=== PATIENT | male | born 1940 | race Caucasian/White ===

== ENCOUNTER 2024-01-15 04:45 | Inpatient (IN) | payer MEDICARE, OTHER, SELFPAY ==
[2024-01-06 12:12] VITALS: BMI 27.9
[2024-01-06 12:32] LABS: % Basophils 0.5 % (0-2); % Eosinophils 2.4 % (0-6); % Immature Granulocytes 0.3 % (0-0.5); % Lymphocytes 26.3 % (20.5-51.1); % Monocytes 9.1 % (1.7-9.3); % Neutrophils 61.4 % (42.2-75.2); Absolute Basophils 0.1 10^3/uL (0-0.2); Absolute Eosinophils 0.3 10^3/uL (0-0.7); Absolute Lymphocytes 2.9 10^3/uL (1.2-3.4); Absolute Neutrophils 6.7 10^3/uL (1.4-6.5); Hematocrit 29.6 % (39.0-52.0); Hemoglobin 9.4 g/dL (13.0-18.0); Mean Corp Hgb Conc. 31.8 g/dL (33.0-37.0); Mean Corpuscular Hgb 27.5 pg (27.0-31.0); Mean Corpuscular Volume 86.5 fL (80.0-94.0); Mean Platelet Volume 10.3 fL (7.4-10.4); Nucleated Red Blood Cells % 0 % (-); Platelet Count 373 10^3/uL (130-400); Red Blood Cell Count 3.42 10^6/uL (4.70-6.10); Red Cell Dist. Width 15.8 % (11.5-14.5); White Blood Cell Count 10.9 10^3/uL (4.8-10.8)
[2024-01-06 12:47] LABS: Urine Albumin Negative (Neg - Trace); Urine Bilirubin Negative (Negative); Urine Character Clear (Clear); Urine Color Yellow; Urine Glucose 3+ (Negative); Urine Ketone Negative (Negative); Urine Leukocyte Negative (Negative); Urine Nitrite Negative (Negative); Urine Occult Blood Negative (Negative); Urine Urobilinogen Negative (Neg - 1+)
[2024-01-06 12:54] LABS: ALT (SGPT) 13 U/L (0-50); AST (SGOT) 23 U/L (17-59); Albumin 3.9 g/dl (3.5-5.0); Alkaline Phosphatase 87 U/L (38-126); Blood Urea Nitrogen 28 mg/dl (9-20); Carbon Dioxide 24 mmol/L (22-30); Chloride 103 mmol/L (98-107); Direct Bilirubin 0.3 mg/dl (0.0-0.4); Estimated Creatinine Clearance 43 ml/min; Glucose 180 mg/dl (70-99); Potassium 4.8 mmol/L (3.5-5.1); Sodium 136 mmol/L (135-145); Total Bilirubin 0.3 mg/dl (0.2-1.3); Total Protein 7.2 g/dl (6.3-8.2); eGFR 50.18
[2024-01-06 12:57] LABS: INR 1.14; PT 14.5 Sec (11.4-14.6)
[2024-01-06 12:58] LABS: APTT 36.7 Sec (23.4-35.0)
[2024-01-06 14:17] LABS: Glycohemoglobin (HgbA1c) 9.4 % (4.0-5.6)
--- NOTE | 2024-01-06 15:48 | CM ---
Chart reviewed. Met with the patient and his in [facility]. Patient is independent of ADLS, lives with his in a 2 STH, 1 [address], powder room on 1st floor with 13 steps to the bedroom/shower, ambulates with a SPC. Patient was concerned about being
able to do the stairs after surgery, since he already has trouble going up and down the stairs. Patient has gone to SNF in the past and is agreeable to go if needed after surgery. Patient would prefer [facility] if qualifies for Acute or [facility] for SNF. Reviewed preoperative and postoperative instructions and restrictions, along with showering guidelines. Gave patient 2 soaps. Patient is agreeable to a home visit by CT Transitional Care RN. Plan is for the patient to return
home with CT Transitional RN vs SNF.
[2024-01-15] VITALS (10 sets, daily range): BP systolic 100–134; BP diastolic 58–75; BMI 29.7
[2024-01-15] MEDS: MAGNESIUM OXIDE 500 MG PO (05:48)
[2024-01-15] MEDS: PROTONIX 40 MG PO (05:48)
[2024-01-15] MEDS: BACTROBAN 2% OINTMENT 1 APPLIC NASAL ×2 (05:48→18:35)
[2024-01-15] MEDS: LOPRESSOR 25 MG PO (05:49)
--- NOTE | 2024-01-15 06:00 | PTCARENOTE ---
Pt arrived to CVICU for SDA; Pt was prepped and clipped; CHG wipes provided; pt provided new gown; all admission questions were asked; medications reviewed-Pt was poor historian for his home medication regime; some medications listed in [facility] are
marked Unknown per pt. Pre-op check list reviewed; CVPA took updated H/P; at bedside; awaiting CVOR.
--- NOTE | 2024-01-15 06:03 | W.CVOR.SURPR ---
CVOR Surgeon Immed Pre Op
-
I have examined this patient prior to performance of the scheduled procedure.
The patient's condition is unchanged from the time of the dictated/written History and
Physical and the patient is able to undergo the scheduled procedure.
RA MIDCAB (LÓPEZ-LAD)
[2024-01-15 07:47] LABS: ACT+ - POC 93 Seconds (82-134)
[2024-01-15 07:48] LABS: Urine Albumin Trace (Neg - Trace); Urine Bilirubin Negative (Negative); Urine Character Clear (Clear); Urine Color Yellow; Urine Glucose 1+ (Negative); Urine Ketone Negative (Negative); Urine Leukocyte Negative (Negative); Urine Nitrite Negative (Negative); Urine Occult Blood 1+ (Negative); Urine Urobilinogen Negative (Neg - 1+)
[2024-01-15 07:52] LABS: B.E. - POC -5.4 mmol/L; Glucose - POC 108 mg/dl (65-99); HCO3 - POC 20 mmol/L (21-29); Hematocrit - POC 28 % PCV (42-52); Hemodilution- POC Yes; Hemoglobin Calculated - POC 9.5; Ionized Calcium - POC 1.17 mmol/L (1.12-1.27); PCO2 - POC 38 mmHg (35-45); PO2 - POC 405 mmHg (80-100); Potassium - POC 4.2 mmol/L (3.6-5.0); Sodium - POC 138 mmol/L (135-145); pH - POC 7.33 (7.35-7.45)
[2024-01-15 08:54] LABS: B.E. - POC -7.1 mmol/L; Glucose - POC 114 mg/dl (65-99); HCO3 - POC 20 mmol/L (21-29); Hematocrit - POC 26 % PCV (42-52); Hemodilution- POC Yes; Hemoglobin Calculated - POC 8.9; Ionized Calcium - POC 1.18 mmol/L (1.12-1.27); O2 Saturation %Calculated-POC 91.7 5 (92-96); PCO2 - POC 43 mmHg (35-45); PO2 - POC 72 mmHg (80-100); Potassium - POC 4.2 mmol/L (3.6-5.0); Sodium - POC 137 mmol/L (135-145); pH - POC 7.26 (7.35-7.45)
[2024-01-15 10:33] LABS: ACT+ - POC 442 Seconds (82-134)
[2024-01-15 10:33] LABS: B.E. - POC -4.1 mmol/L; Glucose - POC 161 mg/dl (65-99); HCO3 - POC 22 mmol/L (21-29); Hematocrit - POC 27 % PCV (42-52); Hemodilution- POC Yes; Hemoglobin Calculated - POC 9.1; Ionized Calcium - POC 1.09 mmol/L (1.12-1.27); PCO2 - POC 46 mmHg (35-45); PO2 - POC 68 mmHg (80-100); Potassium - POC 4.7 mmol/L (3.6-5.0); Sodium - POC 139 mmol/L (135-145); pH - POC 7.29 (7.35-7.45)
--- NOTE | 2024-01-15 10:40 | CM ---
Patient in OR today for planned CT Surgery.
Reviewed initial assessment. Pt. admitted from private home w/ spouse. Functionally, patient is indep. w/ use of a SPC. Pt. has some concerns about DC to home and would prefer rehab. Would prefer [place] [facility] or SNF @ [facility].
Will follow closely.
[2024-01-15 11:54] LABS: ACT+ - POC 107 Seconds (82-134)
[2024-01-15 11:58] LABS: B.E. - POC -7.4 mmol/L; Glucose - POC 178 mg/dl (65-99); HCO3 - POC 20 mmol/L (21-29); Hematocrit - POC 27 % PCV (42-52); Hemodilution- POC Yes; Hemoglobin Calculated - POC 9.1; O2 Saturation %Calculated-POC 99.1 5 (92-96); PCO2 - POC 50 mmHg (35-45); PO2 - POC 164 mmHg (80-100); Potassium - POC 4.3 mmol/L (3.6-5.0); Sodium - POC 139 mmol/L (135-145); pH - POC 7.22 (7.35-7.45)
--- NOTE | 2024-01-15 12:08 | W.PN.CD ---
Addendum entered and electronically signed by William Montelongo MD 01/15/24 14:48:
I saw and examined the patient.
The STRAP FOLDING MACHINE OPERATOR's note was reviewed and I agree with the note.
Comment: He is doing well, heart rate is slow but sinus with a narrow complex. Hopefully will increase with temperature.
Continue typical post op care, will follow.
Original Note:
Today's Communication / Plan
-
Follow telemetry
Impression / Plan
-
Background: 83M with CAD, HTN, HLD, CKD, PAD, DMII, and toe amputationd presents for robotic mid-CAB
Primary Otm Consultant: Dr. Cydney Red ([facility])
Impression/Plan:
CAD S/P Robotic assisted MIDCAB (single-vessel bypass LÓPEZ in situ to LAD) by Dr. Serra 01/15/24
-EF 60% pre and post
-Not requiring vasopressor support
-EKG stable
-Prior PCI with stenting to RCA & Ramus
Bradycardia
-No pauses, follow telemetry, pre OR HR 83
-No wires
CKD3b
Mild AI
Type II DM, Hgba1c 9.4%
HTN
HLD, goal LD < 70, ideally < 55
PAD
Physical Exam
Vital Signs/Labs
Vital Signs
Temp Pulse BP Pulse Ox
98.2 F 83 134/65 98
01/15/24 05:22 01/15/24 05:22 01/15/24 05:22 01/15/24 05:22
01/14/24 01/15/24 01/16/24
06:59 06:59 06:59
Actual Weight 88.5 kg
PT 14.5 Sec (11.4-14.6) 01/06/24 12:01
INR 1.14 01/06/24 12:01
APTT 36.7 Sec (23.4-35.0) H 01/06/24 12:01
Physical Exam
Constitutional: No acute distress and Comfortable
EENT: Anicteric and Moist mucous membranes
Cardiovascular: Rhythm & rate is regular (bradycardia), Pedal edema is absent and Murmur/rub/gallop absent
Respiratory: Lungs clear to auscul. and Other (ETT to mechanical ventilation)
GI: Soft, Distention absent, Flat, Non tender and Normal bowel sounds
Neuro/Psych: Other (sedated)
Other: Skin (warm and dry; amputations noted)
Data Reviewed
-
Date of Service: January 15, 2024
EKG: Report Reviewed by me
Labs: Labs Reviewed by me
--- NOTE | 2024-01-15 12:10 | W.PN.CT.SURG ---
CT Surgery Operative Note
-
CARDIAC SURGERY OPERATIVE REPORT
Preoperative Diagnosis: Coronary Artery Disease with proximal LAD involvement and status post stenting for multivessel disease
Postoperative Diagnosis: Same
Procedure(s) Performed:
1. Robotic assisted MIDCAB (single-vessel bypass LÓPEZ in situ to LAD)
2. Robotic assisted harvest of internal mammary artery with anterolateral mini thoracotomy for CABG
3. Transesophageal echocardiography
4. Transonic Flowprobe assessment of LÓPEZ graft
Date of Surgery: 01/15/2024
Comorbidities:
1. Coronary artery disease involving the proximal LAD
2. Multivessel CAD status post stenting to the RCA and circumflex
3. Hypertension
4. Diabetes mellitus, type II
5. Hyperlipidemia
6. CKD
7. PAD
8. Crohn's disease
9. Mild AI
Attending Surgeon: Dav Serra MD, MS
Assistants: Karin Reyna PA-C (present and necessary to diploma medical assistant, exchanging robotic instruments, retraction, suction, exposure, suture management, and wound closure under my direction)
Anesthesiology: River Orozco MD and Mohan Alvarez CRNA
Scrub and Circulating RNs: Ananda Bradley, RN, Kaci Mccain, GELY
Business Strategy Manager: Leighton Montiel CCP
Anesthesia: GETA
EBL: 200cc
Products: None
Indication(s) for Procedures: This is an 83-year-old male with known CAD who underwent recent PCI and stenting of the RCA and ramus/circumflex lesion was found to have a long segment calcification of the proximal to mid LAD approximately 80% that
was not amenable to stenting. Following his PCI, he felt significantly better and is no longer having exertional angina. The STS risk was discussed with the patient in the office and the shared decision making was to pursue a single-vessel bypass
using his mammary artery to his LAD via a mini invasive approach.
Conduit(s) Quality/Internal Diameter:
LÓPEZ -dense adhesions to the anterior chest wall, however good size graft with excellent flow in the [place] vessel, flow probe analysis, mean approximately 20 cc/min (max of 45ml/min), PI of approximately 3
Target(s) Quality/Internal Diameter:
LAD -good, accepted a 2.0 mm shunt easily
Findings: There were no regional wall motion abnormalities preoperatively. EF is approximately 60% pre and postsurgery. There were no new regional wall motion abnormalities postoperatively. The LÓPEZ was harvested in a skeletonized fashion, of note
there was dense adhesions of the ÓLPEZ graft to the anterior chest wall making it somewhat difficult to harvest. The LAD was verified to be running towards the apex with several diagonal vessels coming off of the main graft. The mammary graft was
verified with Doppler flowprobe to have excellent signals. A posterior pericardiotomy was created and the drain was inserted from the pericardium into the chest through this opening.
Description of Procedure: The patient was taken to the operating room. Their identity and procedure to be performed were verified and they were positioned supine on the operating table. Induction via general anesthesia with endotracheal intubation
was performed and central venous access and arterial monitoring were inserted. A preoperative transesophageal echocardiogram was performed to assess cardiac function and valvular function. The patient was then prepped and draped from chin to feet in
a sterile fashion and positioned with left side bumped up and left arm down. A preoperative time-out was performed with all members of the team present. A Veress needle was used to enter the chest after stopping ventilation with the left lung
verified by anesthesia. We started with slow pressure insufflation which they tolerated. An 8 mm port was inserted in the fourth intercostal space laterally and a camera was inserted verifying no intrathoracic iatrogenic injuries. 2 additional
ports(8 mm and 8mm) were placed along the midaxillary line on either side of the camera port. Single 12 mm air seal port was used for the assistant to the dean to pass instruments and sutures. The robotic platform was then docked and targeted towards the
mammary. The mammary was harvested in a skeletonized fashion. A posterior pericardiotomy was created to facilitate drainage. Once sufficient length was obtained, an anterior pericardiotomy was created to identify the distal target. This was marked
with a marker robotically. The cardiac stabilizer arm was then inserted through one of the robotic ports under direct vision and aimed up towards the anterior chest wall. Full heparinization was given (a total of 30,000 units). 3 Hem-o-medardo clips
were used to occlude the mammary proximally and distally. The cardiac stabilizer was inserted under direct vision.. The robot platform was then undocked and the patient and a left anterior thoracotomy was created over the target vessel. The
mammary then divided after placing several stay sutures. A thoracotomy retractor was placed to facilitate exposure and a pericardial well was created. A sponge stick was used to mobilize the heart visualized the LAD running towards the apex. The
ACT was confirmed to be over 400.
The cardiac suction stabilizer was used to isolate the LAD target. The distal end of the mammary was prepped and beveled to size. We verified orientation and length of the MILA and found brisk flow. A coronary arteriotomy was created and enlarged
with coronary berry scissors. A 2mm shunt was inserted to facilitate exposure and continued che[place] coronary perfusion. An end-to-side anastomosis was created with a 7-0 prolene. The bulldog on the mammary was removed which demonstrated excellent
graft flow. The shunt was then remove and demonstrated excellent che[place]nak flow. Appropriate hemostasis was confirmed. The mammary graft was inspected and was free from kinking or twisting and flowprobe evaluation demonstrated good flow and PI. A test
dose of protamine was administered and the patient was monitored for any adverse reaction before resuming protamine. A 19F mel drain into the pericardium and through the posterior pericardiotomy into the left chest. A #2 Ethibond suture was used
to approximate the rib space. Fascia was approximated with #1 vicryl suture. Local analgesia was administered to the surgical sites. The subcutaneous, dermis and epidermis were closed in layers in a running fashion. The skin wound was cleansed and
dressed.
All instrument, sponge, and needle counts were confirmed to be correct x 2 at the end of the operation. The patient was transferred to the cardiac intensive care unit intubated in critical but stable condition.
I, Dr. Dav Serra, was present, scrubbed for, and performed all critical elements of this procedure.
Dav Serra MD, MS
Cardiothoracic Surgeon
[facility]
This operative dictation was created using the [employer] dictation system. Please excuse any grammatical, typographical, or 'sound alike' errors
[2024-01-15] MEDS: STERILE WATER FOR INJECTION 16 ML IV ×2 (12:30)
[2024-01-15] MEDS: NSS 500 IV (12:30)
[2024-01-15] MEDS: ZINACEF 1500 MG IV ×2 (12:30)
--- NOTE | 2024-01-15 12:30 | PTCARENOTE ---
Phone report from cvor at 1150am and patient receved status post cvor intubated and sedated status post MIDCAB robotically assisted off pump left anterolateral thoracotomy aproach CAB x 1 swanson to lad. Usual lines: no swan gustavo and no epicardial v
wire. Left anterior pericardial med chest tube to -20 cm wall suction: no 'dumping'post op. ABG initially metabolic acidosis and tx with 2 amps NAHCO3- and hypothermic with core temps 93.6 F via mcdaniel temp . Adalberto hugger to high. Sinus beatrice rates in
the 40's to 50's with PAC's/PVC. See flowrecord for remaining assessments. CT surgery updated with all labs and hemodynamics. Titrating down precedex per cvicu protocol
[2024-01-15 12:42] LABS: Glucose - Point of Care 204 mg/dl (70-99)
[2024-01-15 12:43] LABS: B.E. -6.9 mmol/L; HCO3 20.1 mmol/L (21-28); Ionized Calcium 1.24 mMOL/L (1.15-1.33); O2 Saturation % 98.5 % (94-98); PCO2 47 mmHg (35-48); PO2 146 mmHg (83-108); Potassium 4.4 mMOL/L (3.5-5.1); Sodium 136 mMOL/L (136-145); pH 7.24 (7.35-7.45)
[2024-01-15 12:45] LABS: Hematocrit 26.4 % (39.0-52.0); Hemoglobin 8.4 g/dL (13.0-18.0); Platelet Count 340 10^3/uL (130-400)
[2024-01-15 12:54] LABS: INR 1.49; PT 18.1 Sec (11.4-14.6)
[2024-01-15 13:01] LABS: Blood Urea Nitrogen 23 mg/dl (9-20); Estimated Creatinine Clearance 50 ml/min; Glucose 187 mg/dl (70-99)
[2024-01-15] MEDS: SODIUM BICARBONATE 100 MEQ IV (13:06)
--- NOTE | 2024-01-15 13:33 | CON.INTV ---
Consultation
Consultation Request
Date/Time Consultation Requested: 01/15/24
Date/Time Consultation Performed: 01/15/24
Performing Provider: Nohelia
Medical History
-
History of Present Illness:
Patient is an 83-year-old male with previous history of CAD status post PCI, known history of 80% stenosis of the LAD with chronic shortness of breath. Underwent surgical coronary revascularization 01/15/2024 and postoperatively transferred to CVICU
for further management.
No prior known history of lung disease, noted to be a never smoker.
Past Medical History
Past Medical History: Other (see list below)
Social History
Tobacco: Non-smoker
Alcohol: None
Drug: None
Family History
Family History: Reviewed & Not Pertinent
Allergies / Home Medications
Allergies
Allergy/AdvReac Type Severity Reaction Status Date / Time
No Known Allergies Allergy Verified 01/01/24 12:20
Home Medications
Medication Instructions Recorded Confirmed Last Taken Type
amlodipine 10 mg tablet 10 mg PO DAILY 01/01/24 01/15/24 01/14/24 12:00 History
aspirin 81 mg tablet,delayed 81 mg PO DAILY 01/01/24 01/15/24 01/14/24 12:00 History
release
clopidogrel 75 mg tablet 75 mg PO DAILY 01/01/24 01/15/24 01/04/24 08:00 History
fenofibrate nanocrystallized 145 145 mg PO DAILY 01/01/24 01/15/24 01/14/24 12:00 History
mg tablet
fluticasone propionate 50 1 spray intranasal DAILY 01/01/24 01/15/24 12/22/23 08:00 History
mcg/actuation nasal
spray,suspension
indapamide 1.25 mg tablet 1.25 mg PO DAILY 01/01/24 01/01/24 Unknown History
insulin aspart U-100 100 unit/mL 14 - 18 sliding scale dose SC 01/01/24 01/15/24 01/14/24 17:00 History
(3 mL) subcutaneous pen (Novolog DIRECTED
FlexPen U-100 Insulin aspart)
insulin glargine 100 unit/mL (3 20 unit SC BID 01/01/24 01/15/24 01/14/24 19:00 History
mL) subcutaneous pen (Lantus
Solostar U-100 Insulin)
mesalamine 1.2 gram tablet,delayed 4.8 g PO DAILY 01/01/24 01/15/24 01/14/24 12:00 History
release
metoprolol succinate 25 mg 25 mg PO DAILY 01/01/24 01/15/24 01/14/24 12:00 History
tablet,extended release 24 hr
rosuvastatin 20 mg tablet 20 mg PO DAILY 01/01/24 01/15/24 01/14/24 12:00 History
telmisartan 80 mg tablet 80 mg PO DAILY 01/01/24 01/15/24 Unknown History
trazodone 100 mg tablet 100 mg PO HS 01/01/24 01/15/24 01/13/24 19:00 History
vancomycin 125 mg capsule 125 mg PO DAILY 01/01/24 01/15/24 Unknown History
Review of Systems
-
Unable to Obtain full review of systems at this time due to: Acuity and Patient Intubation
Vitals / Labs / Diagnostic Testing
Vital Signs
Temp Pulse Resp BP Pulse Ox
93.7 F L 48 18 134/65 97
01/15/24 13:21 01/15/24 13:21 01/15/24 13:21 01/15/24 05:22 01/15/24 13:21
Lab Data
01/15/24 12:29
Laboratory Results
01/15/24
12:29
PT 18.1 H
INR 1.49
APTT 36.0 H
pH 7.24 L
pCO2 47
pO2 146 H
HCO3 20.1 L
O2 Delivery Level
Diagnostic Testing:
Physical Exam
-
HEENT: Normocephalic, Anicteric and Moist Mucous Membranes
Cardiovascular: S1/S2 and Regular Rhythm
Respiratory: Clear, Non-Labored Respirations and Other (ETT/chest tube)
GI: Soft, Non Distended and Non Tender
Neurology: Other (sedated/intubated)
Skin: Warm, Dry and Good Color
General: Comfortable and Other (NAD)
Assessment
-
Patient is an 83-year-old male with previous history of CAD status post PCI, known history of 80% stenosis of the LAD with chronic shortness of breath. Underwent surgical coronary revascularization 01/15/2024 and postoperatively transferred to CVICU
for further management.
CAD s/p CABG 01/15/24
Perioperative mechanical ventilation
Postop anemia
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
type II diabetes� �
hypercholesterolemia� �
insomnia� �
hypertension� �
CAD s/p Cardiac stents�
peripheral vascular disease� �
seasonal allergies� �
chronic kidney disease stage 3� �
Crohn's disease� �
heart murmur� �
multiple bilateral toe amputations
back surgery� �
H/o c-diff, pneumonia, HR hosp� � 11/26/2023� �
Plan
S/p CAB POD #0
Titrate off pressors per protocol
ECHO reviewed with normal function
PA catheter readings reviewed
Management of chest tubes per primary service
Intubated/sedated, initiate SAT when able
Pain control
RASS goal of 0 to -1
Intubated for procedure, SBT trial when patient able to spontaneously breath
Current vent settings: SIMV 550/18/60/5
ABG(s) reviewed--adequate
CXR with no obvious opacities/infiltrates, low lung volumes, ETT in good position, lines/tubes in place
Extubate per protocol
Maintain supplement oxygen as needed
No prior history of pulmonary disease, nonsmoker
No prior PFTs for review
Can add nebulizers if needed
Aspiration precautions
Encouraged incentive spirometry, OOB/ambulation/early mobility
Advance diet as tolerated following extubation
GI prophylaxis if indicated for mechanical ventilation >48 hours
Monitor critical I/O's
Tapia/chest tube output
Hb/platelets postoperatively stable
Trend CBC for now
Can transfuse if indicated for Hb <7, plt <50 in surgical patients
DVT prophylaxis including SCDs
We will follow
Diagnostic Data
Chest X-Ray: 01/15/24 -The patient is now status post cardiothoracic surgery. Endotracheal tube is 2 cm above the robert. There is a central line catheter on the right with the tip overlying the SVC.
There are low lung volumes with bibasilar atelectasis, bands of atelectasis in the mid lung zones right greater than left, and elevation of the right hemidiaphragm. Left base chest tube in place. Defibrillation pads on the chest Limited evaluation
for subtle abnormality.
CT Scan: CAP 01/06/24- Moderate anterior eventration of the right hemidiaphragm. Linear densities within the lungs, most likely representing scarring, although could also represent linear atelectasis.
Vascular calcification with no evidence for thoracic or aortic aneurysm. Mild hepatomegaly with fatty infiltration of the liver. Cholelithiasis. Evaluation of the pelvis is limited because of streak artifact from left hip prosthesis. Bony
degenerative changes as described. Calcific tendinosis of the right gluteus medius tendon insertion into the right proximal femur.
Echo: 01/15/24- Overall LVEF is approximately 60% with no RWMA.�Mild concentric left ventricular hypertrophy.�Stage I Diastolic dysfunction.�Aortic sclerosis without stenosis.�Trace AI.�Mild tricuspid regurgitation.�Estimated pulmonary artery systolic
pressure of 35-40 mmHg.�Trace pulmonic insufficiency.�Mild sessile atheroma seen in the descending aorta and distal arch.
PFT's:
Reports and relevant images were personally reviewed.
-----
Critical Care time 50 mins -- The patient is admitted for acute critical illness for the treatment of vital organ failure and/or prevention of further life-threatening conditions. Total care includes time spent in review of history, physical exam,
medications, hemodynamic/ventilator parameters, laboratory data, imaging and discussion with house staff, pharmacy, respiratory therapy, wafer substrate tester, and nursing.
--- NOTE | 2024-01-15 13:34 | W.PN.CARDCBS ---
Impression / Plan
-
Background: 83M with CAD, HTN, HLD, CKD, PAD, and toe amputation presents for robotic mid-CAB
Primary Gis Scientist: Dr. Cydney Red ([facility])
Impression/Plan:
CAD S/P Robotic assisted MIDCAB (single-vessel bypass LÓPEZ in situ to LAD) by Dr. Serra 01/15/24
-EF 60% pre and post
-EKG stable
-Prior PCI with stenting to RCA & Ramus
CKD3b
Mild AI
Type II DM, Hgba1c 9.4%
HTN
HLD, goal LD < 70, ideally < 55
PAD
Progress Note - Gis Scientist
Subjective
Date of Service: January 15, 2024
Objective
Labs:
01/15/24 12:29
Labs
Hgb 8.4 g/dL (13.0-18.0) L 01/15/24 12:29
Hct 26.4 % (39.0-52.0) L 01/15/24 12:
Plt Count 340 10^3/uL (130-400) 01/15/24 12:29
PT 18.1 Sec (11.4-14.6) H 01/15/24 12:
INR 1.49 01/15/24 12:
APTT 36.0 Sec (23.4-35.0) H 01/15/24 12:29
Sodium 136 mmol/L (135-145) 01/06/24 12:
Potassium 4.8 mmol/L (3.5-5.1) 01/06/24 12:
BUN 23 mg/dl (9-20) H 01/15/24 12:29
Creatinine 1.1 mg/dL (0.7-1.3) 01/15/24 12:
Glucose 187 mg/dl (70-99) H 01/15/24 12:29
Vital Signs and I&O:
Vital Signs
Temp Pulse Resp BP Pulse Ox
93.7 F L 48 18 134/65 97
01/15/24 13:21 01/15/24 13:21 01/15/24 13:21 01/15/24 05:22 01/15/24 13:21
Vital Signs
Temp Pulse Resp BP Pulse Ox
93.7 F L 48 18 134/65 97
01/15/24 13:21 01/15/24 13:21 01/15/24 13:21 01/15/24 05:22 01/15/24 13:21
Intake & Output
01/13/24 01/14/24 01/15/24 01/16/24
07:59 07:59 07:59 07:59
Intake Total 144.6 / 144.6
Output Total 75 / 75
Balance 69.6 / 69.6
[2024-01-15 13:46] LABS: Glucose - Point of Care 174 mg/dl (70-99)
[2024-01-15 13:58] LABS: B.E. -0.9 mmol/L; HCO3 23.4 mmol/L (21-28); O2 Saturation % 97.9 % (94-98); PCO2 36 mmHg (35-48); PO2 120 mmHg (83-108); pH 7.42 (7.35-7.45)
--- NOTE | 2024-01-15 14:08 | W.PN.UPDATE ---
Update Note
Progress Note Update
IV fluids: 500
U.O.:� 400
Blood:� none
Wires:� none
Inotropes:� none
Pressors:� Norepi @ 3
Sedatives:� Precedex @ 0.6
�
NEURO: sedated on Precedex, pupils +2mm B/L
RESP: #8OT @24cm> 550/100%/16/5. Lungs clear B/L. 2 mediastinal (10cc on arrival) and R/L pleural (20cc on arrival) chest tubes to -20cm suction. Sanguineous drainage
CV: RRR +S1, S2, no S3, no�rub, no murmur. Dermabond intact to left anterior mini thoracotomy. RIJ w/slick.
ABD: round, soft, no BS
EXT: no edema, +1/4 DP pulses B/L, no femoral bruit, R foot with metatarsals amputated; left foot w/1 digit amputated. ; left radial A-line intact
: Tapia with clear yellow urine
�
A/P: POD #0 s/p left mini thoracotomy OBCAB x 1 LÓPEZ-LAD
BRAYDEN: EF�60%, trace TR/PI, mild AI/MR
- wean and extubate
# CAD
- wean Norepi
- ASA within 6 hours post op
- begin statin and Plavix POD #1
�
# acute surgical blood loss anemia (expected) on chronic anemia
- pre-op Hb 9.4
- trend CBC
�
# T2DM (A1C 9.4)
- insulin infusion x 48h
- diabetes management consult
- resume glargine when off insulin infusion
- carb controlled diet
�
# CKD3 (pre-op creat 1.4)
- trend creatinine and UO
# PAD w/R foot metatarsal amputation
- PT/OT consult for ambulatory assessment
# Chron's disease
- resume mesalamine 4.8g daily on POD#1
# Insomnia
- resume Trazadone POD #1
[2024-01-15] MEDS: NOVOLOG FLEXPEN SC ×2 (14:38→17:57)
[2024-01-15] MEDS: CRESTOR PO (14:38)
[2024-01-15] MEDS: TYLENOL PO ×3 (14:39→16:40)
[2024-01-15] MEDS: PEPCID IV (14:39)
[2024-01-15 14:56] LABS: Glucose - Point of Care 159 mg/dl (70-99)
--- NOTE | 2024-01-15 15:49 | PTCARENOTE ---
Patient is awakening to voice/name and spontaneously. Following simple commands and moving all extremeties to RN direction. Will cpap shortly.
--- NOTE | 2024-01-15 16:00 | PTCARENOTE ---
Awakening spontaneously: following direction: nods head no to pain/nausea. Slightly restless: follows direction to calm down. CPAP vent wean initiated 5/5 FiO2 40%. Nitro on as per protocol for hypertension. No 'dumping'from med chest tube
[2024-01-15 16:09] LABS: Glucose - Point of Care 113 mg/dl (70-99)
[2024-01-15 16:38] LABS: B.E. -1.7 mmol/L; HCO3 22.9 mmol/L (21-28); O2 Saturation % 96.6 % (94-98); PCO2 37 mmHg (35-48); PO2 81 mmHg (83-108); Potassium 3.7 mMOL/L (3.5-5.1)
[2024-01-15] MEDS: PACERONE PO (16:40)
[2024-01-15 16:42] LABS: Hematocrit 24.7 % (39.0-52.0); Hemoglobin 8.3 g/dL (13.0-18.0); Platelet Count 321 10^3/uL (130-400)
--- NOTE | 2024-01-15 16:45 | PTCARENOTE ---
Extubated to 6 l nasal canula. Expectorated large amount of thick whitish clear mucous.
[2024-01-15] MEDS: KCL 50 IV ×2 (17:07→18:38)
[2024-01-15 17:16] LABS: Glucose - Point of Care 121 mg/dl (70-99)
--- NOTE | 2024-01-15 17:22 | RESPNOTE ---
Addendum entered by Juana Turk, RT 01/15/24 18:07:
16:45 time of extubation.
Original Note:
14:45 Paient extubated and placed on 6L nasal cannula 96%
[2024-01-15] MEDS: LOW STRENGTH ASPIRIN 81 MG PO (18:35)
[2024-01-15] MEDS: ZINACEF 750 MG IV (18:35)
[2024-01-15 19:32] LABS: Glucose - Point of Care 91 mg/dl (70-99)
[2024-01-15] MEDS: PEPCID 20 MG IV (20:14)
[2024-01-15] MEDS: NSS (PRESERVATIVE FREE) 8 ML IV (20:14)
[2024-01-15] MEDS: TYLENOL 650 MG PO (20:15)
[2024-01-15] MEDS: SENOKOT-S 1 TABLET PO (20:15)
[2024-01-15] MEDS: ROXICODONE 10 MG PO (20:42)
[2024-01-15] MEDS: LOPRESSOR 12.5 MG PO (21:23)
[2024-01-15] MEDS: PACERONE 200 MG PO (21:24)
[2024-01-15 21:28] LABS: Glucose - Point of Care 112 mg/dl (70-99)
[2024-01-15 23:29] LABS: Glucose - Point of Care 98 mg/dl (70-99)
[2024-01-16] VITALS (30 sets, daily range): BP systolic 105–161; BP diastolic 38–93; PULSE 89–121; O2SAT 97; BMI 30.9
[2024-01-16 01:39] LABS: Glucose - Point of Care 100 mg/dl (70-99)
[2024-01-16] MEDS: TYLENOL PO (02:50)
[2024-01-16] MEDS: ROXICODONE 10 MG PO (02:55)
[2024-01-16] MEDS: TYLENOL 650 MG PO ×5 (02:55→20:01)
[2024-01-16] MEDS: ZINACEF 750 MG IV ×2 (02:57→11:17)
[2024-01-16 03:29] LABS: Glucose - Point of Care 92 mg/dl (70-99)
[2024-01-16 04:06] LABS: Hematocrit 24.4 % (39.0-52.0); Hemoglobin 8.3 g/dL (13.0-18.0); Mean Corpuscular Hgb 27.9 pg (27.0-31.0); Mean Corpuscular Volume 82.2 fL (80.0-94.0); Mean Platelet Volume 10.3 fL (7.4-10.4); Platelet Count 347 10^3/uL (130-400); Red Blood Cell Count 2.97 10^6/uL (4.70-6.10); Red Cell Dist. Width 15.7 % (11.5-14.5); White Blood Cell Count 19.3 10^3/uL (4.8-10.8)
[2024-01-16 04:32] LABS: Blood Urea Nitrogen 27 mg/dl (9-20); Calcium 8.7 mg/dl (8.4-10.2); Carbon Dioxide 21 mmol/L (22-30); Chloride 107 mmol/L (98-107); Estimated Creatinine Clearance 46 ml/min; Glucose 83 mg/dl (70-99); Magnesium 2.1 mg/dl (1.6-2.3); Potassium 4.3 mmol/L (3.5-5.1); Sodium 139 mmol/L (135-145); eGFR > 60.00
--- NOTE | 2024-01-16 05:27 | W.PN.CT ---
Today's Communication / Plan
-
-pod #1
-hypertensive, tachycardic initially - improved with BB. C/o 'ache' at the back of the head/neck - resolved with getting out of bed. A&Ox4, neuro intact. Very hard of hearing (hearing aides are at home)
-Drips: insulin, Cardene 5 on and off
-CT output: med 55/125 in 12/24 hrs
-follow Cr - 1.2 today (1.4 preop)
-deline
-continue insulin
-continue Tapia for critical I/O (hx CKD)
-current meds (ASA, Crestor, Lopressor, Amio)
-encourage IS, OOB
Assessment / Plan
-
- CAD with prox LAD dz - s/p Robotic assisted MIDCAB (single-vessel bypass LÓPEZ in situ to LAD) on 01/15/[address] Serra, pod #1
-intraop BRAYDEN: EF is approximately 60% pre and postsurgery.� There were no new regional wall motion abnormalities pre or postoperatively.
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
- Hypertension
- Diabetes mellitus, type II (HgA1c 9.4)
- Hyperlipidemia
- CKD 3a (Cr 1.4 preop)
- PAD
- Crohn's disease
- Mild AI
- Acute on chronic blood loss anemia
- Acute postop metabolic acidosis - resolved
- Acute postop atelectasis
- Acute postop hypovolemia with subsequent hypervolemia
Discussed patient care with: Nursing and Care Team
Subjective
Procedure
- s/p Robotic assisted MIDCAB (single-vessel bypass LÓPEZ in situ to LAD) on 01/15/[address] Serra
-
Date of Service: January 16, 2024
Objective Data
-
PT 18.1 Sec (11.4-14.6) H 01/15/24 12:29
INR 1.49 01/15/24 12:29
APTT 36.0 Sec (23.4-35.0) H 01/15/24 12:29
Vital Signs
Vital Signs
Temp Pulse Resp BP Pulse Ox
99.7 F 88 15 117/64 95
01/15/24 22:06 01/15/24 22:00 01/15/24 22:00 01/15/24 22:00 01/15/24 22:06
CT Intake/Output/Weight
01/15/24 01/15/24 01/16/24
06:59 18:59 06:59
Intake Total 315.0 / 815.0 500 / 815.0
Output Total 315 / 690 375 / 690
Balance 0 / 125.0 125 / 125.0
SaO2: 95
Physical Exam
-
General: Awake and AOx3
Cardiovascular: Regular rate & rhythm and Murmur (1/6 systolic @lsb, no rub)
Respiratory: Decreased Breath Sounds
Sternum: Stable
Incision: Clean, Dry and Dressing Intact
Extremities: No Edema (R foot with all toes amputated, L foot amputated ?4th digit. warm b/l, DPs not palpable b/l)
Abdomen: distended, increased bowel sounds, nontender
Data Reviewed
-
Lab Results: Results Reviewed
Medications: Active Meds Reviewed
Chest X-Ray: Report Reviewed and Image Reviewed
ECG: Report Reviewed and Image Reviewed
[2024-01-16 05:49] LABS: Glucose - Point of Care 110 mg/dl (70-99)
--- NOTE | 2024-01-16 07:37 | PTCARENOTE ---
Patient received from nightshift nurse. Patient is alert and oriented x4, pleasant. Very hard of hearing - patient left his hearing aids at home so he wouldn't lose them. Denies pain/discomfort. NSR with ST elevations. Rub auscultated. HR 70s-80s. L
radial a-line maintained with BP 120s-130s/30s-40s. Correlating with LUE BP cuff 115/61. RIJ cordis maintained with KVO. Insulin gtt maintained per critical care glycemic protocol. PIV maintained. 2L NC maintained. Oxygen saturation 99%. Upon
auscultation, lung sounds diminished throughout. MS CT maintained to -20cm wall suction with minimal serosanguineous drainage. Abdomen round, obese. Hypoactive BS. Per patient, passing gas. Tapia maintained with adequate UOP. Assist x2 OOB into
chair. L anterior lateral chest incision is approximated with surgical adhesive and open to air. Patient had R foot toes amputated. L foot only has one toe amputated. Will continue to monitor.
[2024-01-16 08:21] LABS: Glucose - Point of Care 102 mg/dl (70-99)
--- NOTE | 2024-01-16 08:42 | W.PN.CD ---
Today's Communication / Plan
-
continue ASA, plavix, statin
EKG
tele
Impression / Plan
-
Background: 83M with CAD, HTN, HLD, CKD, PAD, DMII, and toe amputationd presents for robotic mid-CAB
Primary Termite Control Servicer: Dr. Cydney Red ([facility])
Impression/Plan:
CAD S/P Robotic assisted MIDCAB (single-vessel bypass LÓPEZ in situ to LAD) by Dr. Serra 01/15/24
-Prior PCI with stenting to RCA & Ramus
-EF 60% pre and post
-EKG and tele: sinus
-ASA, plavix, statin
ST elevation on EKG, rub on exam
-but no complaints of chest pain/pericarditis sxs
-monitor clinically, and trend EKG
Bradycardia
-No pauses, follow telemetry, pre OR HR 83
-No wires
CKD3b
Mild AI
Type II DM, Hgba1c 9.4%
HTN
HLD, goal LD < 70, ideally < 55
PAD
Physical Exam
Vital Signs/Labs
Vital Signs
Temp Pulse Resp BP Pulse Ox
100.5 F H 77 13 115/61 94
01/16/24 08:00 01/16/24 08:00 01/16/24 08:00 01/16/24 08:00 01/16/24 07:00
01/15/24 01/16/24 01/17/24
06:59 06:59 06:59
Actual Weight 88.5 kg 92.2 kg
01/16/24 03:23
01/16/24 03:23
PT 18.1 Sec (11.4-14.6) H 01/15/24 12:29
INR 1.49 01/15/24 12:29
APTT 36.0 Sec (23.4-35.0) H 01/15/24 12:29
Magnesium 2.1 mg/dl (1.6-2.3) 01/16/24 03:23
Physical Exam
Constitutional: No acute distress and Comfortable
EENT: Moist mucous membranes
Cardiovascular: Rhythm & rate is regular, Pedal edema is absent, JVD pressure is normal, Systolic murmur absent and Rub present
Respiratory: Respiratory effort normal and Lungs clear to auscul.
GI: Soft, Distention absent and Flat
Neuro/Psych: AO x 3
Data Reviewed
-
Date of Service: January 16, 2024
EKG: Other (Tele: NSR)
Labs: Labs Reviewed by me
[2024-01-16 09:13] LABS: Glucose - Point of Care 242 mg/dl (70-99)
[2024-01-16] MEDS: BACTROBAN 2% OINTMENT 1 APPLIC NASAL ×2 (09:34→19:59)
[2024-01-16] MEDS: CRESTOR 20 MG PO (09:35)
[2024-01-16] MEDS: PROTONIX 40 MG PO (09:35)
[2024-01-16] MEDS: PLAVIX 75 MG PO (09:35)
[2024-01-16] MEDS: MAGNESIUM OXIDE 500 MG PO (09:35)
[2024-01-16] MEDS: NOVOLOG FLEXPEN SC (09:35)
[2024-01-16] MEDS: LOW STRENGTH ASPIRIN 81 MG PO (09:35)
[2024-01-16] MEDS: KCL 20 MEQ PO (09:36)
[2024-01-16] MEDS: SENOKOT-S 1 TABLET PO (09:36)
[2024-01-16] MEDS: LASIX 40 MG IV (09:36)
[2024-01-16] MEDS: PACERONE 200 MG PO ×3 (09:36→22:09)
[2024-01-16 10:32] LABS: Glucose - Point of Care 227 mg/dl (70-99)
[2024-01-16] MEDS: LOPRESSOR 12.5 MG PO (10:38)
--- NOTE | 2024-01-16 11:12 | W.PN.ANS.POP ---
Anesthesia Post Operative
- Anesthesia Post Op Note
Vital Signs Stable-See Nursing Note: Yes
Airway Patent: Yes
Adequate Pain Control: Yes
Change in Mental Status: No
Current Postoperative Nausea & Vomiting: No
Anesthesia Complications: No
General Anesthetic Recall: No
Unplanned Admission: No
Post Op Hydration Adequate: Yes
- -
Saw pt this AM at 0745..OOB to chair, comfortable, VSS, no N/V.
[2024-01-16] MEDS: NSS IV (11:17)
[2024-01-16] MEDS: STERILE WATER FOR INJECTION 8.30000000000000071 ML IV (11:17)
[2024-01-16 11:22] LABS: Glucose - Point of Care 188 mg/dl (70-99)
--- NOTE | 2024-01-16 11:26 | PN.DE.MGMTRT ---
Insulin Management
- -
01/16/2024 Diabetes Management Consult
Patient is POD 1 s/p OR for robotic assisted MIDCAB single vessel. PMH HCL, HTN, type 2 diabetes, CAD, PVD, CKD3, Crohns disease. Patient states he has had diabetes 30 years. Initially took metformin but had diarrhea and could not tolerate. He
was then started on insulin. He saw endocrine in [facility]. but it became difficult to get to the city so has worked with his primary doctor, Twan, to manage his diabetes.
Patient is awake, alert and oriented sitting out of bed for our consult. Prior to admission he states he was taking novolog 14 units with breakfast and dinner and 18 units with lunch. He also takes 18 units of lantus BID.
On admission his A1C is 9.4%, cr 1.2, eGFR >60.
He is currently on the critical care glycemic protocol requiring .6 to 2.3 units of insulin per hour.
Will continue on glycemic protocol today and evaluate for readiness to transition off in AM.
Patient does not eat any meals at home he visits a local diner for breakfast and dinner his lunch is usually a sandwich, dinner is usually pancakes or pashto toast with cottage cheese. Discussed with patient the importance of well balanced diet
with examples of better choices, he verbalized understanding and was most appreciative. He has a candy CGM which he uses. Will ask case management to investigate cost of farxiga or jardiance.
Diabetes History
- -
Type of Diabetes: 2 requiring insulin
Pre-Admission Diabetes Regimen
01/15/24 01/16/24
12 03:23
Creatinine 1.1 1.2
Lab Results
Hemoglobin A1c 9.4 % (4.0-5.6) H 01/06/24 12:01
Insulin Pump Settings
IP Diabetes Regimen
01/15/24 01/15/24 01/15/24
12: 12:31 13:40
Glucose 187 H
POC Glucose 204 H 174 H
01/15/24 01/15/24 01/15/24
14:54 16:05 17:14
Glucose
POC Glucose 159 H 113 H 121 H
01/15/24 01/15/24 01/15/24
19:32 21:26 23:27
Glucose
POC Glucose 91 112 H 98
01/16/24 01/16/24 01/16/24
01:38 03:23 03:27
Glucose 83
POC Glucose 100 H 92
01/16/24 01/16/24 01/16/24
05:47 08:19 09:12
Glucose
POC Glucose 110 H 102 H 242 H
01/16/24 01/16/24
10:31 11:20
Glucose
POC Glucose 227 H 188 H
Meal type: Breakfast
Meal type: Dinner
Amount consumed: 90%
Patient Education
--- NOTE | 2024-01-16 12:10 | W.PN.INTV ---
Today's Communication / Plan
Recommendations
Doing well post extubation, stable on room air
Chest tube remains, PAC discontinued
Continue further postop care
Transition off insulin gtt as able
Transfer to tele when off gtt, we will sign off upon transfer
Assessment
-
Patient is an 83-year-old male with previous history of CAD status post PCI, known history of 80% stenosis of the LAD with chronic shortness of breath. Underwent surgical coronary revascularization 01/15/2024 and postoperatively transferred to CVICU
for further management.
CAD s/p CABG 01/15/24
Perioperative mechanical ventilation
Postop anemia
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
type II diabetes� �
hypercholesterolemia� �
insomnia� �
hypertension� �
CAD s/p Cardiac stents�
peripheral vascular disease� �
seasonal allergies� �
chronic kidney disease stage 3� �
Crohn's disease� �
heart murmur� �
multiple bilateral toe amputations
back surgery� �
H/o c-diff, pneumonia, HR hosp� � 11/26/2023� �
Plan
S/p CAB POD #1
Off pressors per protocol
ECHO reviewed with normal function
PA catheter discontinued
Management of chest tubes per primary service
Pain control
RASS goal of 0 to -1
Intubated for procedure, extubated overnight and doing well
ABG(s) reviewed--adequate
CXR with stable post op changes
Maintain supplement oxygen as needed
No prior history of pulmonary disease, nonsmoker
No prior PFTs for review
Can add nebulizers if needed
Aspiration precautions
Encouraged incentive spirometry, OOB/ambulation/early mobility
Advance diet as tolerated following extubation
GI prophylaxis if indicated for mechanical ventilation >48 hours
Monitor critical I/O's
Tapia/chest tube output
Hb/platelets postoperatively stable
Trend CBC for now
Can transfuse if indicated for Hb <7, plt <50 in surgical patients
DVT prophylaxis including SCDs
Remains on insulin gtt, transition off as able
Diagnostic Data
Chest X-Ray: 01/15/24 -The patient is now status post cardiothoracic surgery. Endotracheal tube is 2 cm above the robert. There is a central line catheter on the right with the tip overlying the SVC.
There are low lung volumes with bibasilar atelectasis, bands of atelectasis in the mid lung zones right greater than left, and elevation of the right hemidiaphragm. Left base chest tube in place. Defibrillation pads on the chest Limited evaluation
for subtle abnormality.
CT Scan: CAP 01/06/24- Moderate anterior eventration of the right hemidiaphragm. Linear densities within the lungs, most likely representing scarring, although could also represent linear atelectasis.
Vascular calcification with no evidence for thoracic or aortic aneurysm. Mild hepatomegaly with fatty infiltration of the liver. Cholelithiasis. Evaluation of the pelvis is limited because of streak artifact from left hip prosthesis. Bony
degenerative changes as described. Calcific tendinosis of the right gluteus medius tendon insertion into the right proximal femur.
Echo: 01/15/24- Overall LVEF is approximately 60% with no RWMA.�Mild concentric left ventricular hypertrophy.�Stage I Diastolic dysfunction.�Aortic sclerosis without stenosis.�Trace AI.�Mild tricuspid regurgitation.�Estimated pulmonary artery systolic
pressure of 35-40 mmHg.�Trace pulmonic insufficiency.�Mild sessile atheroma seen in the descending aorta and distal arch.
PFT's:
Reports and relevant images were personally reviewed.
-----
Critical Care time 32 mins -- The patient is admitted for acute critical illness for the treatment of vital organ failure and/or prevention of further life-threatening conditions. Total care includes time spent in review of history, physical exam,
medications, hemodynamic/ventilator parameters, laboratory data, imaging and discussion with house staff, pharmacy, respiratory therapy, cement mixer, and nursing.
Subjective Dataa
Subjective Data
Date of Service:
Date of Service: January 16, 2024
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
Subjective:
Doing well post extubation
Sitting in chair, on room air
PAC discontinued, chest tube in place
Objective Data
Data Reviewed
Vital Signs / I&O / Oxygen:
Vital Signs
Temp Pulse Resp BP Pulse Ox
98.2 F 82 20 136/64 98
01/16/24 09:00 01/16/24 11:00 01/16/24 11:00 01/16/24 11:00 01/16/24 11:00
Intake and Output
01/15/24 01/16/24 01/17/24
06:59 06:59 06:59
Intake Total 815.0 / 1307.3 529.0 / 529.0
Output Total 1130 / 1190 470 / 470
Balance -315 / 117.3 59.0 / 59.0
SaO2 [CPAP/PSV] 96
SaO2 [SIMV] 92
SaO2 98
Nasal Cannula flow liters per 2
minute
Physical Exam
General: Comfortable, Pain and Other (NAD)
HEENT: Normocephalic, Anicteric and Moist Mucous Membranes
Cardiovascular: S1-S2 and Regular Rhythm
Respiratory: Clear, Non-Labored Respirations and Chest Tube
GI: Soft, Non Distended and Non Tender
Neurology: Awake, Alert, Oriented, AO x 3 and No Motor Deficits
Skin: Warm, Dry and Good Color
Labs/Micro/Reports
Lab Data
01/16/24 03:23
01/16/24 03:23
Laboratory Results
01/15/24 01/15/24 01/15/24
12:29 13:39 16:24
PT 18.1 H
INR 1.49
APTT 36.0 H
pH 7.24 L 7.42 7.40
pCO2 47 36 37
pO2 146 H 120 H 81 L
HCO3 20.1 L 23.4 22.9
O2 Delivery Level
[2024-01-16 12:18] LABS: Glucose - Point of Care 158 mg/dl (70-99)
--- NOTE | 2024-01-16 12:34 | PTCARENOTE ---
Vital signs stable. NSR. HR 80s-90s. BP 120/67. RA. Oxygen saturation 98%. RP CT maintained to -20cm wall suction with a moderate amount of serosanguineous drainage. Patient had an incontinent episode of bowel and bladder - brown, liquid stool was
on the floor along with a big puddle of urine. Patient washed up with CHG wipes, gown and socks changed. Housekeeping mopped the floor and changed the trash bag.
[2024-01-16 13:01] LABS: Glucose - Point of Care 117 mg/dl (70-99)
[2024-01-16] MEDS: NOVOLOG FLEXPEN 4 UNITS SC ×2 (13:02→17:20)
--- NOTE | 2024-01-16 13:27 | CM ---
Priced Anthony + Inder thru patient's pharmacy, [facility]-estimated co pay for both medications is $47/mo.
I will provide free 30 d coupon for whichever medication that patient is RXed at [facility].
[2024-01-16 14:12] LABS: Glucose - Point of Care 197 mg/dl (70-99)
[2024-01-16] MEDS: ROXICODONE 5 MG PO ×2 (14:24→20:02)
[2024-01-16 15:27] LABS: Glucose - Point of Care 241 mg/dl (70-99)
[2024-01-16] MEDS: FLEXERIL 5 MG PO ×2 (15:27→22:08)
[2024-01-16 16:07] LABS: Glucose - Point of Care 157 mg/dl (70-99)
--- NOTE | 2024-01-16 16:18 | CM ---
CM following for DC planning needs.
Met w/ patient at bedside. Pt. feels well. Discussed DC plans. Patient is hopeful to transfer to [facility] once medically stable.
Referral initiated to [facility], accepted per Kaci/ liaison.
There is no authorization re'd for transfer.
Will follow up with [facility] re: medical stability and coordinate transfer once stable.
Plan: [facility] @
--- NOTE | 2024-01-16 16:19 | PTCARENOTE ---
Vital signs stable. NSR. HR 80s-90s. BP 126/62. Gave patient a dose of 12.5mg Lopressor. RA. Oxygen saturation 96%. RIJ cordis maintained with KVO. Insulin gtt maintained per critical care glycemic protocol. PIV maintained. RP CT maintained to -20cm
wall suction with moderate serosanguineous drainage. Patient had another brown, liquid stool. He had another episode of incontinence with a large puddle of urine on the floor. Housekeeping mopped the floor again. He voided in the urinal afterwards.
Administered Roxicodone for 10/10 sternal pain. Patient also c/o L neck/shoulder pain. CT GUN TESTER ordered Flexeril for the muscle pain.
[2024-01-16] MEDS: NORVASC 10 MG PO (18:43)
[2024-01-16] MEDS: NOVOLIN R INSULIN INFUSION 100 IV (18:47)
[2024-01-16 19:55] LABS: Glucose - Point of Care 171 mg/dl (70-99)
[2024-01-16 19:55] LABS: Glucose - Point of Care 169 mg/dl (70-99)
[2024-01-16] MEDS: LOPRESSOR 25 MG PO (20:00)
--- NOTE | 2024-01-16 20:00 | PTCARENOTE ---
pt aaoX4 W/ COMPLAINTS OF PAIN, VSS NS on monitor, MS CTx1 draining sang/ sero Sang, using bedside commode. surgical wounds CDI. See worklist for detailed assessment
[2024-01-16] MEDS: SENOKOT-S PO (20:01)
[2024-01-16 21:09] LABS: Glucose - Point of Care 119 mg/dl (70-99)
[2024-01-16 22:12] LABS: Glucose - Point of Care 98 mg/dl (70-99)
[2024-01-17] VITALS (15 sets, daily range): BP systolic 103–137; BP diastolic 49–68; PULSE 84–101; O2SAT 95; BMI 30.7
--- NOTE | 2024-01-17 | PTCARENOTE ---
no change from previous assessment
[2024-01-17 00:15] LABS: Glucose - Point of Care 113 mg/dl (70-99)
[2024-01-17] MEDS: ROXICODONE 5 MG PO (01:04)
[2024-01-17] MEDS: TYLENOL 650 MG PO ×6 (01:04→23:29)
[2024-01-17 01:07] LABS: Glucose - Point of Care 92 mg/dl (70-99)
[2024-01-17 03:48] LABS: Glucose - Point of Care 96 mg/dl (70-99)
--- NOTE | 2024-01-17 04:00 | PTCARENOTE ---
no change from previous assessment
[2024-01-17 04:04] LABS: Hematocrit 24.3 % (39.0-52.0); Hemoglobin 7.9 g/dL (13.0-18.0); Mean Corp Hgb Conc. 32.5 g/dL (33.0-37.0); Mean Corpuscular Hgb 27.3 pg (27.0-31.0); Mean Corpuscular Volume 84.1 fL (80.0-94.0); Mean Platelet Volume 10.3 fL (7.4-10.4); Platelet Count 284 10^3/uL (130-400); Red Blood Cell Count 2.89 10^6/uL (4.70-6.10); Red Cell Dist. Width 15.9 % (11.5-14.5); White Blood Cell Count 14.4 10^3/uL (4.8-10.8)
[2024-01-17 04:29] LABS: Blood Urea Nitrogen 29 mg/dl (9-20); Calcium 8.1 mg/dl (8.4-10.2); Carbon Dioxide 23 mmol/L (22-30); Chloride 106 mmol/L (98-107); Estimated Creatinine Clearance 39 ml/min; Glucose 86 mg/dl (70-99); Potassium 4.3 mmol/L (3.5-5.1); Sodium 134 mmol/L (135-145); eGFR 42.75
--- NOTE | 2024-01-17 04:47 | W.PN.CT ---
Today's Communication / Plan
-
-pod #2
-no issues overnight. No further loose stool
-possible pericarditis/rub. Echo 01/15 ok
-diuresed well with 40 iv Lasix 01/15 (UO 1200+/1875+). Wt is up 8 lbs on 01/15 from preop. Continue diuresis
-follow Cr - 1.6 today (1.2 on 01/15 and 1.4 preop)
-h/h 7.9.3 - follow
-CT output: med 125/435 in 1224 hrs
-encourage IS, OOB
Assessment / Plan
-
- CAD with prox LAD dz - s/p Robotic assisted MIDCAB (single-vessel bypass LÓPEZ in situ to LAD) on 01/15/[address] Serra, pod #2
-intraop BRAYDEN: EF is approximately 60% pre and postsurgery.� There were no new regional wall motion abnormalities pre or postoperatively.
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
- Hypertension
- Diabetes mellitus, type II (HgA1c 9.4)
- Hyperlipidemia
- CKD 3a (Cr 1.4 preop)
- PAD
- Crohn's disease
- Mild AI
- Acute on chronic blood loss anemia
- Acute postop metabolic acidosis - resolved
- Acute postop atelectasis
- Acute postop hypovolemia with subsequent hypervolemia
- Suspected acute postop pericarditis on ECG, + rub. Echo 01/15 was unremarkable
- Acute postop hyponatremia
Discussed patient care with: Nursing and Care Team
Subjective
Procedure
- s/p Robotic assisted MIDCAB (single-vessel bypass LÓPEZ in situ to LAD) on 01/15/[address] Serra
-
Date of Service: January 17, 2024
Objective Data
-
Lab Results
01/17/24 03:40
01/17/24 03:40
PT 18.1 Sec (11.4-14.6) H 01/15/24 12:29
INR 1.49 01/15/24 12:29
APTT 36.0 Sec (23.4-35.0) H 01/15/24 12:29
Vital Signs
Vital Signs
Temp Pulse Resp BP Pulse Ox
98.6 F 84 24 120/55 95
01/17/24 04:00 01/17/24 04:00 01/16/24 17:00 01/17/24 04:00 01/16/24 20:00
CT Intake/Output/Weight
01/16/24 01/16/24 01/17/24
06:59 18:59 06:59
Intake Total 500 / 1307.3 1589.8 / 1606.8 17 / 1606.8
Output Total 815 / 1190 985 / 2310 1325 / 2310
Balance -315 / 117.3 604.8 / -703.2 -1308 / -703.2
SaO2: 95
Physical Exam
-
General: Awake and AOx3
Cardiovascular: Regular rate & rhythm, rub
Respiratory: Decreased Breath Sounds
Sternum: Stable
Incision: Clean, Dry and Dressing Intact
Abdomen: distended, increased bowel sounds, nontender
Extremities: trace edema (R foot with all toes amputated, L foot amputated ?4th digit. warm b/l, DPs not palpable b/l)
Data Reviewed
-
Lab Results: Results Reviewed
Medications: Active Meds Reviewed
Chest X-Ray: Report Reviewed and Image Reviewed
ECG: Report Reviewed and Image Reviewed
[2024-01-17 05:49] LABS: Glucose - Point of Care 109 mg/dl (70-99)
[2024-01-17] MEDS: TYLENOL PO (06:36)
--- NOTE | 2024-01-17 06:58 | PN.DE.MGMTRT ---
Insulin Management
- -
01/17/2024 Diabetes Management Follow up
Patient is POD 2 s/p OR for robotic assisted MIDCAB single vessel. PMH HCL, HTN, type 2 diabetes, CAD, PVD, CKD3, Crohns disease. Patient states he has had diabetes 30 years. Initially took metformin but had diarrhea and could not tolerate. He
was then started on insulin. He saw endocrine in [facility]. but it became difficult to get to the city so has worked with his primary doctor, Twan, to manage his diabetes.
Patient continued on insulin infusion critical care glycemic protocol overnight requiring .7 to 6 units of insulin per hour. Will prepare to transition to subcutaneous insulin this AM, lantus reported as 18 units BID and novolog 14 units AC. A1C
9.4% will add Farxiga 10 mg daily. Will reduce novolog AC from reported home dose of 14 units to 10 units and follow glucose for need to increase. Patient to receive first dose of lantus this AM 18 units and Farxiga 10 mg. Insulin infusion to be
stopped @ 11AM.
Diabetes History
- -
Type of Diabetes: 2 requiring insulin
Pre-Admission Diabetes Regimen
01/17/24
03:40
Creatinine 1.6 H
Lab Results
Hemoglobin A1c 9.4 % (4.0-5.6) H 01/06/24 12:01
Insulin Pump Settings
IP Diabetes Regimen
01/16/24 01/16/24 01/16/24
08:19 09:12 10:31
Glucose
POC Glucose 102 H 242 H 227 H
01/16/24 01/16/24 01/16/24
11:20 12:09 13:00
Glucose
POC Glucose 188 H 158 H 117 H
01/16/24 01/16/24 01/16/24
14:11 15:25 16:06
Glucose
POC Glucose 197 H 241 H 157 H
01/16/24 01/16/24 01/16/24
18:45 19:53 21:07
Glucose
POC Glucose 171 H 169 H 119 H
01/16/24 01/17/24 01/17/24
22:11 00:14 01:06
Glucose
POC Glucose 98 113 H 92
01/17/24 01/17/24 01/17/24
03:40 03:45 05:48
Glucose 86
POC Glucose 96 109 H
Meal type: Dinner
Meal type: Dinner
Meal type: Lunch
Meal type: Breakfast
Amount consumed: 100%
Amount consumed: 100%
Amount consumed: 100%
Amount consumed: 90%
Patient Education
--- NOTE | 2024-01-17 07:45 | PTCARENOTE ---
Received patient from prior shift. Pt assessment completed, see documentation in medical record. Pt education initiated about ISB use, cough and deep breathing with the heart pillow, mobility, nutrition, pain management, and rest periods. Pt asked
to demonstrate ISB, and patient education completed to correct technique. Pt demonstrated understanding of education using the teach back method. Proper technique with the incentive spirometer will be reinforced, and patient instructed to use the
ISB ten times per hour (minimum). Medication education including medication side effects provided for all 0800 medications prior to administering AM medications. Pt sitting in the chair and resting comfortably. Medication education will be
reinforced throughout the day. IV site flushed and patent.
--- NOTE | 2024-01-17 07:52 | W.PN.CD ---
Today's Communication / Plan
-
- Recovering slowly.
- Chest tube left chest - likely coming out today
Impression / Plan
-
Background: 83M with CAD, HTN, HLD, CKD, PAD, DMII, and toe amputationd presents for robotic mid-CAB
Primary Roll Grinder: Dr. Cydney Red ([facility])
Impression/Plan:
CAD S/P Robotic assisted MIDCAB (single-vessel bypass LÓPEZ in situ to LAD) by Dr. Serra 01/15/24
-Prior PCI with stenting to RCA & Ramus
-EF 60% pre and post - repeat ECHO 01/15 - LVEF 60% stable.
-EKG and tele: sinus
-ASA, plavix, statin
ST elevation on EKG, rub on exam
-Resolved.
-but no complaints of chest pain/pericarditis sxs
-EKG this AM - stable
- ECHO 01/15 - no wall motion abnormalities.
Bradycardia
-No pauses, follow telemetry, pre OR HR 83
-No wires
CKD3b
Mild AI
Type II DM, Hgba1c 9.4%
HTN
HLD, goal LD < 70, ideally < 55
PAD
Physical Exam
Vital Signs/Labs
Vital Signs
Temp Pulse Resp BP Pulse Ox
98.6 F 84 24 120/55 95
01/17/24 04:00 01/17/24 04:00 01/16/24 17:00 01/17/24 04:00 01/17/24 04:51
01/16/24 01/17/24 01/18/24
06:59 06:59 06:59
Actual Weight 92.2 kg 91.7 kg
01/17/24 03:40
01/17/24 03:40
PT 18.1 Sec (11.4-14.6) H 03/06/24 12:29
INR 1.49 01/15/24 12:29
APTT 36.0 Sec (23.4-35.0) H 01/15/24 12:29
Magnesium 2.1 mg/dl (1.6-2.3) 01/16/24 03:23
Physical Exam
Constitutional: No acute distress, Comfortable and Other (mildly dyspneic - normal resp rate and oxygenation. )
EENT: Anicteric and Moist mucous membranes
Cardiovascular: Rhythm & rate is regular (sinus tach), Pedal edema is absent and JVD present
Respiratory: Respiratory effort normal, Wheeze Absent and Crackles Present
GI: Soft, Non tender and Normal bowel sounds
Neuro/Psych: Alert, Oriented and AO x 3
Data Reviewed
-
Date of Service: January 17, 2024
Medical Decision Making: Reviewed Test Results, Independent Historian Assessment, Test Interpretation and Review of Case with other Provider
EKG: Tracing Personally Visualized and interpreted
Echo: Tracing Personally Visualized and interpreted
X-Ray/CT/US/MRI/NUC/PET: Image Personally Visualized and interpreted
Labs: Labs Reviewed by me
Old Records: Reviewed
Critical Care Time (in minutes): 32
--- NOTE | 2024-01-17 08:00 | PTCARENOTE ---
Pt uses commode for urination. He reports that he cannot coordinate a urinal. Pt assisted on commode, but most of the urine was on the floor. Unable to get accurate intake and output.
[2024-01-17] MEDS: LANTUS 0.179999999999999993 UNITS SC ×2 (08:02→21:04)
[2024-01-17 08:06] LABS: Glucose - Point of Care 121 mg/dl (70-99)
[2024-01-17] MEDS: SENOKOT-S PO ×3 (08:09→19:48)
[2024-01-17] MEDS: FERRLECIT 110 MG IV (08:09)
[2024-01-17] MEDS: NORVASC 10 MG PO (08:10)
[2024-01-17] MEDS: LOW STRENGTH ASPIRIN 81 MG PO (08:10)
[2024-01-17] MEDS: CRESTOR 20 MG PO (08:11)
[2024-01-17] MEDS: PROTONIX 40 MG PO (08:11)
[2024-01-17] MEDS: FLEXERIL 5 MG PO ×3 (08:11→21:03)
[2024-01-17] MEDS: VITAMIN C 1000 MG PO (08:12)
[2024-01-17] MEDS: PLAVIX 75 MG PO (08:12)
[2024-01-17] MEDS: LASIX 40 MG IV (08:12)
[2024-01-17] MEDS: LOPRESSOR 25 MG PO ×2 (08:12→19:46)
[2024-01-17] MEDS: KCL 20 MEQ PO (08:12)
[2024-01-17] MEDS: PACERONE 200 MG PO ×3 (08:12→21:04)
[2024-01-17] MEDS: NOVOLOG FLEXPEN SC ×2 (08:13→12:00)
[2024-01-17] MEDS: BACTROBAN 2% OINTMENT 1 APPLIC NASAL ×2 (08:14→19:47)
[2024-01-17] MEDS: FARXIGA 10 MG PO (08:16)
--- NOTE | 2024-01-17 09:55 | PTCARENOTE ---
Pt discussed diarrhea with Dr. Hurd. Dr. Hurd will monitor for now.
--- NOTE | 2024-01-17 10:00 | PTCARENOTE ---
Patient education completed regarding DVT prevention in the post operative period and the risk for PE and/or stroke. Pt instructed about aspirin and plavix treatment, frequent movement, frequent ankle pumps, and the need to increase activity during
recovery and after discharge. Fall risk prevention reinforced, and pt instructed not to get up from the chair or bed without the assistance of the nurse. Pt demonstrated an understanding of education using the teach back method. Call echols in reach
of patient at all times.
[2024-01-17 10:10] LABS: Glucose - Point of Care 229 mg/dl (70-99)
--- NOTE | 2024-01-17 11:00 | PTCARENOTE ---
Pt education reinforced regarding pain management. Pt instructed about the pain management goal to achieve a pain scale of 3 out of 10 pain or less. Pt education provided about pain medications and nonpharmaceutical pain management including
repositioning, rest, distraction, massage, imagery, hot or cold therapy, and exercise. Pt demonstrated an understanding of education using the teach back method. Pt states his pain is a 2 out of 10 and denies need for additional pain medications.
--- NOTE | 2024-01-17 11:15 | PTCARENOTE ---
Pt seen by Dr Hurd. Chest tubes continue to drain serous fluid. Will continue chest tubes for now.
[2024-01-17 11:30] LABS: Glucose - Point of Care 296 mg/dl (70-99)
--- NOTE | 2024-01-17 11:30 | PTCARENOTE ---
Prior patient assessment remains unchanged. Pt resting comfortably in the chair. Heart sounds S1S2 and lungs clear but decreased left base. Pain remains controlled at a 2 out of 10. Pt using ISB every hour, and ISB technique has improved. Pt has
ambulated in the hallway with one person assist and a walker for balance. Demonstrates proper sternal precautions and heart pillow use.
--- NOTE | 2024-01-17 11:36 | W.PN.INTV ---
Today's Communication / Plan
Recommendations
Doing well postop
Transitioning off insulin gtt per team
No new complaints
Continue further postop care
Can transfer to tele when off insulin, we will sign off upon transfer
Assessment
-
Patient is an 83-year-old male with previous history of CAD status post PCI, known history of 80% stenosis of the LAD with chronic shortness of breath. Underwent surgical coronary revascularization 01/15/2024 and postoperatively transferred to CVICU
for further management.
CAD s/p CABG 01/15/24
Perioperative mechanical ventilation
Postop anemia
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
type II diabetes� �
hypercholesterolemia� �
insomnia� �
hypertension� �
CAD s/p Cardiac stents�
peripheral vascular disease� �
seasonal allergies� �
chronic kidney disease stage 3� �
Crohn's disease� �
heart murmur� �
multiple bilateral toe amputations
back surgery� �
H/o c-diff, pneumonia, HR hosp� � 11/26/2023� �
Plan
S/p CAB POD #2
Off pressors per protocol
ECHO reviewed with normal function
PA catheter discontinued
Management of chest tubes per primary service
Pain control
RASS goal of 0 to -1
Intubated for procedure, extubated overnight and doing well
ABG(s) reviewed--adequate
CXR with stable post op changes
Maintain supplement oxygen as needed
No prior history of pulmonary disease, nonsmoker
No prior PFTs for review
Can add nebulizers if needed
Aspiration precautions
Encouraged incentive spirometry, OOB/ambulation/early mobility
Advance diet as tolerated following extubation
GI prophylaxis if indicated for mechanical ventilation >48 hours
Monitor critical I/O's
Tapia/chest tube output
Hb/platelets postoperatively stable
Trend CBC for now
Can transfuse if indicated for Hb <7, plt <50 in surgical patients
DVT prophylaxis including SCDs
Remains on insulin gtt, transition off as able
Diagnostic Data
Chest X-Ray: 01/15/24 -The patient is now status post cardiothoracic surgery. Endotracheal tube is 2 cm above the robert. There is a central line catheter on the right with the tip overlying the SVC.
There are low lung volumes with bibasilar atelectasis, bands of atelectasis in the mid lung zones right greater than left, and elevation of the right hemidiaphragm. Left base chest tube in place. Defibrillation pads on the chest Limited evaluation
for subtle abnormality.
CT Scan: CAP 01/06/24- Moderate anterior eventration of the right hemidiaphragm. Linear densities within the lungs, most likely representing scarring, although could also represent linear atelectasis.
Vascular calcification with no evidence for thoracic or aortic aneurysm. Mild hepatomegaly with fatty infiltration of the liver. Cholelithiasis. Evaluation of the pelvis is limited because of streak artifact from left hip prosthesis. Bony
degenerative changes as described. Calcific tendinosis of the right gluteus medius tendon insertion into the right proximal femur.
Echo: 01/15/24- Overall LVEF is approximately 60% with no RWMA.�Mild concentric left ventricular hypertrophy.�Stage I Diastolic dysfunction.�Aortic sclerosis without stenosis.�Trace AI.�Mild tricuspid regurgitation.�Estimated pulmonary artery systolic
pressure of 35-40 mmHg.�Trace pulmonic insufficiency.�Mild sessile atheroma seen in the descending aorta and distal arch.
PFT's:
Reports and relevant images were personally reviewed.
-----
Critical Care time 32 mins -- The patient is admitted for acute critical illness for the treatment of vital organ failure and/or prevention of further life-threatening conditions. Total care includes time spent in review of history, physical exam,
medications, hemodynamic/ventilator parameters, laboratory data, imaging and discussion with house staff, pharmacy, respiratory therapy, lens finisher, and nursing.
Subjective Dataa
Subjective Data
Date of Service:
Date of Service: January 17, 2024
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
Subjective:
doing well postop
sitting in chair, stable on room air
insulin gtt transitioning off
Objective Data
Data Reviewed
Vital Signs / I&O / Oxygen:
Vital Signs
Temp Pulse Resp BP Pulse Ox
98.6 F 99 24 135/67 95
01/17/24 04:00 01/17/24 08:10 01/16/24 17:00 01/17/24 08:10 01/17/24 04:51
Intake and Output
01/16/24 01/17/24 01/18/24
06:59 06:59 06:59
Intake Total 815.0 / 1307.3 1619.8 / 1619.8
Output Total 1130 / 1190 2670 / 2670
Balance -315 / 117.3 -1050.2 / -1050.2
SaO2 [CPAP/PSV] 96
SaO2 [SIMV] 92
SaO2 95
Nasal Cannula flow liters per 2
minute
Physical Exam
General: Comfortable, Pain and Other (NAD)
HEENT: Normocephalic, Anicteric and Moist Mucous Membranes
Cardiovascular: S1-S2 and Regular Rhythm
Respiratory: Clear and Non-Labored Respirations
GI: Soft, Non Distended and Non Tender
Neurology: Awake, Alert, Oriented, AO x 3 and No Motor Deficits
Skin: Warm, Dry and Good Color
Labs/Micro/Reports
Lab Data
01/17/24 03:40
01/17/24 03:40
[2024-01-17] MEDS: NSS 500 IV (11:58)
--- NOTE | 2024-01-17 12:00 | PTCARENOTE ---
Pt education completed about the modifiable and non-modifiable risk factors for CAD. Education included emphasis on modifiable risk factors like high BP; high blood cholesterol levels; smoking; diabetes; overweight or obesity; lack of physical
activity; unhealthy diet and stress. Specific risk factors
that apply to the patient were discussed like diabetes, diet, weight management, and blood pressure management. Mr Pringle demonstrated understanding of the the education with the teach back method.
[2024-01-17] MEDS: NOVOLOG FLEXPEN 10 UNITS SC ×2 (12:01→16:50)
[2024-01-17] MEDS: NOVOLOG FLEXPEN-LOW RESISTANCE 3 UNITS SC (12:02)
--- NOTE | 2024-01-17 15:00 | PTCARENOTE ---
Prior assessment remains unchanged. Heart and lung sounds unchanged. Pt continues to increase activity level. Infection prevention education provided including hand hygiene, incision care at home, and signs/symptoms of infection.
--- NOTE | 2024-01-17 15:22 | CM ---
CM following for DC planning needs.
Met w/ patient at bedside.
Reviewed DC plan for acute rehab @ [facility]/.
Bed not available until Saturday.
Will follow up on Saturday and if medically stable, will coordinate transfer to [facility].
Spoke w/ Arabella/spouse @ [phone]. She is aware/agreeable to plan to transfer to [facility] once stable.
Will cont. to follow.
--- NOTE | 2024-01-17 16:35 | PTCARENOTE ---
Transitioned nursing care to another RN for the shift remainder.
[2024-01-17 16:51] LABS: Glucose - Point of Care 175 mg/dl (70-99)
[2024-01-17] MEDS: NOVOLOG FLEXPEN-LOW RESISTANCE 1 UNITS SC (16:51)
--- NOTE | 2024-01-17 17:35 | PTCARENOTE ---
assumed care of pt from previous shift RN, sinus rhythm on tele, VSS, pt sitting in chair eating dinner without complaint.
--- NOTE | 2024-01-17 19:37 | PTCARENOTE ---
Assumed care of patient. NSR. VSS. RA. OOB currently. Denies pain. Assessment per nursing flowsheet. CT to suction. Assist x1 with walker.
[2024-01-17 21:04] LABS: Glucose - Point of Care 154 mg/dl (70-99)
[2024-01-17] MEDS: MYLICON 160 MG PO (21:04)
[2024-01-17] MEDS: MELATONIN 5 MG PO (23:29)
--- NOTE | 2024-01-17 23:39 | PTCARENOTE ---
NSR, VSS, RA. Denies pain. OOB with walker to bathroom. Pt educated on techniques to safely stand and sit. Requested melatonin for sleep, order received and administered. Assessment unchanged at this time
[2024-01-18] VITALS (12 sets, daily range): BP systolic 105–132; BP diastolic 56–62; PULSE 81; O2SAT 95; BMI 30.1
[2024-01-18 04:35] LABS: Hematocrit 23.6 % (39.0-52.0); Hemoglobin 7.8 g/dL (13.0-18.0); Mean Corp Hgb Conc. 33.1 g/dL (33.0-37.0); Mean Corpuscular Hgb 27.1 pg (27.0-31.0); Mean Corpuscular Volume 81.9 fL (80.0-94.0); Mean Platelet Volume 10.6 fL (7.4-10.4); Platelet Count 281 10^3/uL (130-400); Red Blood Cell Count 2.88 10^6/uL (4.70-6.10)
[2024-01-18] MEDS: TYLENOL PO (04:55)
--- NOTE | 2024-01-18 04:59 | PTCARENOTE ---
NSR. VSS. OOB to bathroom throughout night. CT with 30ml serosanguinous drainage. Weight/labs obtained. Assessment unchanged.
[2024-01-18 05:01] LABS: Blood Urea Nitrogen 32 mg/dl (9-20); Carbon Dioxide 23 mmol/L (22-30); Chloride 105 mmol/L (98-107); Estimated Creatinine Clearance 36 ml/min; Glucose 103 mg/dl (70-99); Potassium 4.2 mmol/L (3.5-5.1); Sodium 133 mmol/L (135-145); eGFR 39.75
--- NOTE | 2024-01-18 05:31 | W.PN.CT ---
Addendum entered and electronically signed by Dany Mensah MD 01/18/24 09:34:
I saw and examined the patient.
The PA's note was reviewed and I agree with the note.
Comment:
D/C CT
D/C Cordis
Follow creat
OOB/IS/ambulate
Potential plan for [facility] on Saturday
Original Note:
Today's Communication / Plan
-
-pod #3
-no issues overnight.
-CT output: med 30/230 in 12/24 hrs
-follow�Cr - 1.7 today�(1.6 on 01/16, 1.2 on 01/15 and 1.4 preop)
-h/h low but stable 7.8/23.6 (7.9/24.3 on 01/16)�- follow
-current meds (ASA, Plavix, Crestor, Lopressor, Amio, Lasix, Norvasc, Farxiga, Insulin, iron, Vit C)
-appreciate Cardiology and DM input
-encourage IS, OOB
Assessment / Plan
-
- CAD with prox LAD dz - s/p Robotic assisted MIDCAB (single-vessel bypass LÓPEZ in situ to LAD) on 01/15/[address] Serra, pod #3
-intraop BRAYDEN: EF is approximately 60% pre and postsurgery.� There were no new regional wall motion abnormalities pre or postoperatively.
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
- Hypertension
- Diabetes mellitus, type II (HgA1c 9.4)
- Hyperlipidemia
- CKD 3a (Cr 1.4 preop)
- PAD
- Crohn's disease
- Mild AI
- Acute on chronic blood loss anemia
- Acute postop metabolic acidosis - resolved
- Acute postop atelectasis
- Acute postop hypovolemia with subsequent hypervolemia
- Suspected acute postop pericarditis on ECG, + rub. Echo 01/15 was unremarkable
- Acute postop hyponatremia
- DAELINA on CKD
Discussed patient care with: Nursing and Care Team
Subjective
Procedure
- s/p Robotic assisted MIDCAB (single-vessel bypass LÓPEZ in situ to LAD) on 01/15/[address] Serra
-
Date of Service: January 18, 2024
Objective Data
-
PT 18.1 Sec (11.4-14.6) H 01/15/24 12:29
INR 1.49 01/15/24 12:29
APTT 36.0 Sec (23.4-35.0) H 01/15/24 12:29
Vital Signs
Vital Signs
Temp Pulse Resp BP Pulse Ox
98.1 F 76 20 109/55 96
01/17/24 23:16 01/17/24 23:15 01/17/24 23:16 01/17/24 23:15 01/17/24 23:16
CT Intake/Output/Weight
01/17/24 01/17/24 01/18/24
06:59 18:59 06:59
Intake Total 30 / 1619.8 469.5 / 469.5
Output Total 1685 / 2670 200 / 450 250 / 450
Balance -1655 / -1050.2 269.5 / 19.5 -250 / 19.5
SaO2: 96
Physical Exam
-
General: Awake and AOx3
Cardiovascular: Regular rate & rhythm, rub
Respiratory: Decreased Breath Sounds
Sternum: Stable
Incision: Clean, Dry and Dressing Intact
Abdomen: distended, increased bowel sounds, nontender
Extremities: trace edema (R foot with all toes amputated, L foot amputated ?4th digit. warm b/l, DPs not palpable b/l)
Data Reviewed
-
Lab Results: Results Reviewed
Medications: Active Meds Reviewed
Chest X-Ray: Report Reviewed and Image Reviewed
ECG: Report Reviewed and Image Reviewed
[2024-01-18] MEDS: NOVOLOG FLEXPEN 10 UNITS SC ×3 (07:34→17:01)
[2024-01-18] MEDS: NOVOLOG FLEXPEN-LOW RESISTANCE SC (07:35)
[2024-01-18 07:36] LABS: Glucose - Point of Care 117 mg/dl (70-99)
[2024-01-18] MEDS: LANTUS 0.179999999999999993 UNITS SC ×2 (07:37→21:35)
[2024-01-18] MEDS: KCL PO (08:35)
[2024-01-18] MEDS: SENOKOT-S PO ×2 (08:36→19:03)
[2024-01-18] MEDS: CRESTOR 20 MG PO (08:45)
[2024-01-18] MEDS: NORVASC 10 MG PO (08:45)
[2024-01-18] MEDS: PROTONIX 40 MG PO (08:45)
[2024-01-18] MEDS: PLAVIX 75 MG PO (08:45)
[2024-01-18] MEDS: BACTROBAN 2% OINTMENT 1 APPLIC NASAL ×2 (08:45→19:23)
[2024-01-18] MEDS: LOW STRENGTH ASPIRIN 81 MG PO (08:45)
--- NOTE | 2024-01-18 08:45 | PTCARENOTE ---
Assumed care of patient. Walking rounds completed with previous RN. Pt assessed while he was sitting in the chair. Pt alert and oriented x4. ROB with equal strength throughout. Ambulates in the room with minimal assist and rolling walker. NSR with
rates in the 80s. BP stable 122/56. Heart tones audible. Bilateral radial and DP pulses palpable. No edema noted. POX 97% on RA. Lungs diminished in the bases. No cough noted. Mediastinal chest tube to -20cm suction draining scant amounts of serous
drainage. No air leak or crepitus noted. Abdomen soft, round, distended. +BS. Pt states he is slightly nauseous, but continues to eat breakfast. Pt voiding asha urine in the toilet. Left chest incision approximated and closed with skin glue. Left
chest wall puncture site approximated with skin glue. Right IJ cordis intact with NSS KVO infusing. Right AC intact. See MAR for medication administration. See worklist for complete nursing assessment. Plan of care reviewed and significant
encouragement and education needed on patient involvement in care.
[2024-01-18] MEDS: LOPRESSOR 25 MG PO ×2 (08:46→19:23)
[2024-01-18] MEDS: PACERONE 200 MG PO ×3 (08:46→21:32)
[2024-01-18] MEDS: LOZOL 1.25 MG PO (08:46)
[2024-01-18] MEDS: FLEXERIL 5 MG PO (08:46)
[2024-01-18] MEDS: FARXIGA 10 MG PO (08:46)
[2024-01-18] MEDS: VITAMIN C 1000 MG PO (08:54)
[2024-01-18] MEDS: FERRLECIT 110 MG IV (08:54)
[2024-01-18] MEDS: FLUSH (NSS) 1 FLUSH IV (08:54)
[2024-01-18] MEDS: NSS IV (09:16)
[2024-01-18] MEDS: MYLICON 80 MG PO (10:35)
[2024-01-18] MEDS: TYLENOL 650 MG PO ×2 (10:35→15:26)
[2024-01-18] MEDS: LASIX 40 MG IV (10:35)
[2024-01-18 11:38] LABS: Glucose - Point of Care 165 mg/dl (70-99)
[2024-01-18] MEDS: NOVOLOG FLEXPEN-LOW RESISTANCE 1 UNITS SC ×2 (11:38→17:01)
--- NOTE | 2024-01-18 11:40 | W.PN.CD ---
Today's Communication / Plan
-
- Ambulate once CT is out
- OOB and IS
- [facility] on Saturday
Impression / Plan
-
Background: 83M with CAD, HTN, HLD, CKD, PAD, DMII, and toe amputationd presents for robotic mid-CAB
Primary Pc Technician: Dr. Cydney Red ([facility])
Impression/Plan:
CAD S/P Robotic assisted MIDCAB (single-vessel bypass LÓPEZ in situ to LAD) by Dr. Serra 01/15/24
-Prior PCI with stenting to RCA & Ramus
-EF 60% pre and post - repeat ECHO 01/15 - LVEF 60% stable.
-EKG and tele: sinus
-ASA, plavix, statin
ST elevation on EKG, rub on exam
-Resolved.
-but no complaints of chest pain/pericarditis sxs
-EKG this AM - stable
-ECHO 01/15 - no wall motion abnormalities.
Bradycardia
-No pauses, follow telemetry, pre OR HR 83
-No wires
CKD3b
Mild AI
Type II DM, Hgba1c 9.4%
HTN
HLD, goal LD < 70, ideally < 55
PAD
Dispo:
Rehab - possibly on Saturday
Physical Exam
Vital Signs/Labs
Vital Signs
Temp Pulse Resp BP Pulse Ox
98.5 F 82 18 122/56 97
01/18/24 08:00 01/18/24 10:00 01/18/24 08:00 01/18/24 08:44 01/18/24 08:45
01/17/24 01/18/24 01/19/24
06:59 06:59 07:59
Actual Weight 91.7 kg 89.9 kg
03/09/24 04:06
01/18/24 04:06
PT 18.1 Sec (11.4-14.6) H 01/15/24 12:29
INR 1.49 01/15/24 12:29
APTT 36.0 Sec (23.4-35.0) H 01/15/24 12:29
Magnesium 2.1 mg/dl (1.6-2.3) 01/16/24 03:23
Physical Exam
Constitutional: No acute distress and Comfortable
EENT: Anicteric and Moist mucous membranes
Cardiovascular: Rhythm & rate is regular, Pedal edema is absent and JVD pressure is normal
Respiratory: Respiratory effort normal and Rhonchi Present
GI: Soft, Non tender and Normal bowel sounds
Other: Other (PAD and amputated right foot toes)
Data Reviewed
-
Date of Service: January 18, 2024
Medical Decision Making: Reviewed Test Results, Independent Historian Assessment and Test Interpretation
EKG: Tracing Personally Visualized and interpreted
Echo: Report Reviewed by me
Labs: Labs Reviewed by me
Old Records: Reviewed
Critical Care Time (in minutes): 32
--- NOTE | 2024-01-18 11:42 | PTCARENOTE ---
Pt reassessed. VSS. CT output WNL. Sitting in the chair. No acute changes.
--- NOTE | 2024-01-18 13:00 | PTCARENOTE ---
CT CAB DRIVER at bedside to remove mediastinal chest tube. Vaseline gauze dressing applied. Right AC PIV leaking, dc and new Left wrist 22g PIV placed. Right IJ cordis d/c per orders. Pt tolerated. Pt resting in bed at this time.
[2024-01-18] MEDS: FLEXERIL PO ×2 (15:26→15:36)
--- NOTE | 2024-01-18 15:39 | PTCARENOTE ---
Pt reassessed. VSS. Pt ambulated 40' in the [place] with rolling walker. No other acute changes.
[2024-01-18 17:03] LABS: Glucose - Point of Care 166 mg/dl (70-99)
--- NOTE | 2024-01-18 19:00 | PTCARENOTE ---
Assumed care of patient. NSR. VSS on RA. Denies pain. Requesting melatonin for sleep. Assessment per nursing flowsheet. Plan for [facility] on Saturday.
[2024-01-18] MEDS: MELATONIN 5 MG PO (21:32)
[2024-01-18 21:33] LABS: Glucose - Point of Care 75 mg/dl (70-99)
[2024-01-18 21:33] LABS: Glucose - Point of Care 79 mg/dl (70-99)
--- NOTE | 2024-01-18 21:34 | PTCARENOTE ---
HS BG 79 -18 units lantus SQ to be administered per Rosa BAUTISTA
[2024-01-19] VITALS (13 sets, daily range): BP systolic 90–126; BP diastolic 28–77; BMI 29.6
--- NOTE | 2024-01-19 00:23 | PTCARENOTE ---
NSR. VSS. Room air. Pt resting. Denies pain. Assessment unchanged
[2024-01-19 04:05] LABS: Hematocrit 26.2 % (39.0-52.0); Hemoglobin 8.4 g/dL (13.0-18.0); Mean Corp Hgb Conc. 32.1 g/dL (33.0-37.0); Mean Corpuscular Hgb 26.9 pg (27.0-31.0); Mean Platelet Volume 10.4 fL (7.4-10.4); Platelet Count 357 10^3/uL (130-400); Red Blood Cell Count 3.12 10^6/uL (4.70-6.10); Red Cell Dist. Width 15.9 % (11.5-14.5); White Blood Cell Count 11.9 10^3/uL (4.8-10.8)
--- NOTE | 2024-01-19 04:15 | PTCARENOTE ---
NSR. VSS. RA. OOB x1hr per patient's request. Now resting in bed. Assessment unchanged. Forgetful at times, but able to ring appropriately and make needs known
[2024-01-19 04:27] LABS: Blood Urea Nitrogen 33 mg/dl (9-20); Carbon Dioxide 22 mmol/L (22-30); Chloride 104 mmol/L (98-107); Estimated Creatinine Clearance 33 ml/min; Glucose 88 mg/dl (70-99); Sodium 135 mmol/L (135-145); eGFR 34.79
--- NOTE | 2024-01-19 05:10 | W.PN.CT ---
Addendum entered and electronically signed by Dany Mensah MD 01/19/24 10:40:
I saw and examined the patient.
The PA's note was reviewed and I agree with the note.
Comment:
Follow creat/UO
Continue current medications
OOB/IS/ambulate
Check 2-view CXR today
Original Note:
Today's Communication / Plan
-
-pod #4
-follow�Cr - 1.9 today, 1.7 yesterday�(1.4 preop). Non-oliguric.
-current meds (ASA, Plavix, Crestor, Lopressor, Amio, Lasix, Norvasc, Farxiga, Insulin, iron, Vit C)
-appreciate Cardiology and DM input
-encourage IS, OOB
-Dispo planning
Assessment / Plan
-
- CAD with prox LAD dz - s/p Robotic assisted MIDCAB (single-vessel bypass LÓPEZ in situ to LAD) on 01/15/[address] Serra, pod #4
-intraop BRAYDEN: EF is approximately 60% pre and postsurgery.� There were no new regional wall motion abnormalities pre or postoperatively.
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
- Hypertension
- Diabetes mellitus, type II (HgA1c 9.4)
- Hyperlipidemia
- CKD 3a (Cr 1.4 preop)
- PAD
- Crohn's disease
- Mild AI
- Acute on chronic blood loss anemia
- Acute postop metabolic acidosis - resolved
- Acute postop atelectasis
- Acute postop hypovolemia with subsequent hypervolemia
- Suspected acute postop pericarditis on ECG, + rub. Echo 01/15 was unremarkable
- Acute postop hyponatremia
- ADELINA on CKD
Subjective
Procedure
- s/p Robotic assisted MIDCAB (single-vessel bypass LÓPEZ in situ to LAD) on 01/15/[address] Serra
-
Date of Service: January 19, 2024
No overnight events. CTs DCd yesterday. Diuresed.
Objective Data
-
Lab Results
01/19/24 03:51
01/19/24 03:51
PT 18.1 Sec (11.4-14.6) H 01/15/24 12:29
INR 1.49 01/15/24 12:29
APTT 36.0 Sec (23.4-35.0) H 01/15/24 12:29
Vital Signs
Vital Signs
Temp Pulse Resp BP Pulse Ox
98.3 F 88 16 111/52 96
01/19/24 03:56 01/19/24 03:42 01/19/24 03:56 01/19/24 03:42 01/19/24 03:56
CT Intake/Output/Weight
01/18/24 01/18/24 01/19/24
06:59 18:59 07:59
Intake Total 840 / 840
Output Total 280 / 480 15 / 15
Balance -280 / -10.5 825 / 825
SaO2: 96
Physical Exam
-
General: Awake, Oriented and AOx3
Cardiovascular: Regular rate & rhythm
Respiratory: Clear and Decreased Breath Sounds
Sternum: Stable
Incision: Clean, Dry and Intact
Extremities: Edema +1
Data Reviewed
-
Lab Results: Results Reviewed
Medications: Active Meds Reviewed
Chest X-Ray: Report Reviewed
ECG: Report Reviewed
[2024-01-19] MEDS: NOVOLOG FLEXPEN 10 UNITS SC ×3 (07:05→16:48)
[2024-01-19] MEDS: NOVOLOG FLEXPEN-LOW RESISTANCE SC ×3 (07:05→16:48)
[2024-01-19] MEDS: LANTUS 0.179999999999999993 UNITS SC ×2 (07:09→21:02)
[2024-01-19 07:10] LABS: Glucose - Point of Care 102 mg/dl (70-99)
[2024-01-19] MEDS: FLUSH (NSS) 1 FLUSH IV (07:44)
[2024-01-19] MEDS: FERRLECIT 110 MG IV (07:44)
--- NOTE | 2024-01-19 07:45 | PTCARENOTE ---
Resumed care of patient. Walking rounds completed. Pt assisted to bathroom with 1assist and rolling walker. Encouraged patient to take his time to prevent falls. A&Ox4 but forgetful at times. Rates surgical site pain 1/10. Denies nausea and
shortness of breath. ROB with equal strength throughout. Multiple toe amputations. NSR on tele with rates in the 80s. BP 94/38, CT TIMBER TRIMMER aware. Heart tones audible. Bilateral radial and DP pulses palpable. No edema noted. POX 97% on RA. Lungs clear
throughout. IS encouraged-1000mL achieved. Abdomen round, distended. +BS. +diarrhea. Pt voiding in the toilet-reports no issues. Left chest incision approximated and closed with skin glue, several left chest wall puncture sites approximated with
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 Old chest tube site dressing CDI. Left wrist 22g PIV intact. See MAR for medication administration. See worklist for complete nursing assessment. Plan of care reviewed and patient in agreement.
[2024-01-19] MEDS: PACERONE 200 MG PO ×3 (07:47→21:05)
[2024-01-19] MEDS: PLAVIX 75 MG PO (07:47)
[2024-01-19] MEDS: PROTONIX 40 MG PO (07:47)
[2024-01-19] MEDS: VITAMIN C 1000 MG PO (07:47)
[2024-01-19] MEDS: LOW STRENGTH ASPIRIN 81 MG PO (07:47)
[2024-01-19] MEDS: TYLENOL 650 MG PO (07:48)
[2024-01-19] MEDS: CRESTOR 20 MG PO (07:48)
[2024-01-19] MEDS: FARXIGA 10 MG PO (07:48)
[2024-01-19] MEDS: SENOKOT-S PO ×2 (07:54→19:22)
[2024-01-19] MEDS: BACTROBAN 2% OINTMENT 1 APPLIC NASAL (07:54)
[2024-01-19] MEDS: KCL PO (07:54)
[2024-01-19] MEDS: NORVASC 10 MG PO (09:06)
[2024-01-19] MEDS: LOZOL PO (09:07)
[2024-01-19] MEDS: NSS IV (09:44)
--- NOTE | 2024-01-19 09:52 | W.PN.CD ---
Today's Communication / Plan
-
- Hold lasix and Inder with ADELINA
Impression / Plan
-
Background: 83M with CAD, HTN, HLD, CKD, PAD, DMII, and toe amputationd presents for robotic mid-CAB
Primary Department Chair: Dr. Cydney Red ([facility])
Impression/Plan:
CAD S/P Robotic assisted MIDCAB (single-vessel bypass LÓPEZ in situ to LAD) by Dr. Serra 01/15/24
-Prior PCI with stenting to RCA & Ramus
-EF 60% pre and post - repeat ECHO 01/15 - LVEF 60% stable.
-EKG and tele: sinus
-ASA, plavix, statin
ST elevation on EKG, rub on exam
-Resolved.
-but no complaints of chest pain/pericarditis sxs
-EKG this AM - stable
-ECHO 01/15 - no wall motion abnormalities.
Bradycardia
-No pauses, follow telemetry, pre OR HR 83
-No wires
ADELINA
-Baseline CKD3b
-Cr is 1.2 at baseline.
- 1.9 today
- Follow.
Mild AI
Type II DM, Hgba1c 9.4%
HTN
HLD, goal LD < 70, ideally < 55
PAD
Dispo:
Rehab - possibly on Saturday
Physical Exam
Vital Signs/Labs
Vital Signs
Temp Pulse Resp BP Pulse Ox
98.7 F 87 18 94/38 97
01/19/24 08:00 01/19/24 08:00 01/19/24 08:00 01/19/24 08:00 01/19/24 08:00
01/18/24 01/19/24 01/20/24
05:59 06:59 06:59
Actual Weight
01/19/24 03:51
01/19/24 03:51
PT 18.1 Sec (11.4-14.6) H 01/15/24 12:29
INR 1.49 01/15/24 12:29
APTT 36.0 Sec (23.4-35.0) H 01/15/24 12:29
Magnesium 2.1 mg/dl (1.6-2.3) 01/16/24 03:23
Physical Exam
Constitutional: No acute distress and Comfortable
EENT: Anicteric and Moist mucous membranes
Cardiovascular: Rhythm & rate is regular and JVD pressure is normal
Respiratory: Respiratory effort normal, Wheeze Absent and Crackles Absent
GI: Soft, Non tender and Normal bowel sounds
Neuro/Psych: Alert, Oriented and AO x 3
Data Reviewed
-
Date of Service: January 19, 2024
Medical Decision Making: Reviewed Test Results, Independent Historian Assessment and Test Interpretation
EKG: Tracing Personally Visualized and interpreted
Echo: Report Reviewed by me
Labs: Labs Reviewed by me
Old Records: Reviewed
Critical Care Time (in minutes): 32
[2024-01-19] MEDS: LOZOL 1.25 MG PO (10:03)
[2024-01-19] MEDS: LOPRESSOR 25 MG PO ×2 (10:03→19:22)
[2024-01-19 11:25] LABS: Glucose - Point of Care 101 mg/dl (70-99)
--- NOTE | 2024-01-19 11:30 | PTCARENOTE ---
Pt reassessed. VSS. Pt resting comfortably in the chair. No complaints.
--- NOTE | 2024-01-19 16:03 | PTCARENOTE ---
Pt reassessed. VSS. No acute changes. Surgical sites stable.
[2024-01-19 16:50] LABS: Glucose - Point of Care 125 mg/dl (70-99)
--- NOTE | 2024-01-19 19:00 | PTCARENOTE ---
report received from previous RN, walking rounds done. pt in chair, AAOx4. pt denies any pain. VSS. NSR on monitor, HR 80's. POX 95% on room air. PIV intact and patent. all surgical sites stable. see worklist for full assessment, VS, and
interventions. pt resting comfortably.
[2024-01-19] MEDS: MELATONIN 5 MG PO (21:00)
[2024-01-19 21:02] LABS: Glucose - Point of Care 109 mg/dl (70-99)
[2024-01-20] VITALS: BP 126/55
--- NOTE | 2024-01-20 02:23 | W.PN.CT ---
Today's Communication / Plan
-
Transfer to [place] today if bed available�
Continue current meds (ASA, Plavix, Crestor, Lopressor, Amio, Norvasc, Insulin, iron, Vit C)�
Lasix and Farxiga held yesterday by cardiology for increased creatinine; today CR remains at 1.9, voiding�
OOB/IS/ ambulate�
Assessment / Plan
-
- CAD with prox LAD dz - s/p Robotic assisted MIDCAB (single-vessel bypass LÓPEZ in situ to LAD) on 01/15/[address] Serra, pod #5
-intraop BRAYDEN: EF is approximately 60% pre and postsurgery.� There were no new regional wall motion abnormalities pre or postoperatively.
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
- Hypertension
- Diabetes mellitus, type II (HgA1c 9.4)
- Hyperlipidemia
- CKD 3a (Cr 1.4 preop)
- PAD
- Crohn's disease
- Mild AI
- Acute on chronic blood loss anemia
- Acute postop metabolic acidosis - resolved
- Acute postop atelectasis
- Acute postop hypovolemia with subsequent hypervolemia
- Suspected acute postop pericarditis on ECG, + rub. Echo 01/15 was unremarkable
- Acute postop hyponatremia
- ADELINA on CKD
Subjective
Procedure
- s/p Robotic assisted MIDCAB (single-vessel bypass LÓPEZ in situ to LAD) on 01/15/[address] Serra
-
Date of Service: January 20, 2024
Objective Data
-
PT 18.1 Sec (11.4-14.6) H 01/15/24 12:29
INR 1.49 01/15/24 12:29
APTT 36.0 Sec (23.4-35.0) H 01/15/24 12:29
Vital Signs
Vital Signs
Temp Pulse Resp BP Pulse Ox
98.7 F 77 18 126/55 94
01/20/24 00:00 01/20/24 00:00 01/19/24 19:22 01/20/24 00:00 01/20/24 00:00
CT Intake/Output/Weight
01/19/24 01/19/24 01/20/24
06:59 18:59 06:59
Intake Total 590 / 590
Balance 590 / 590
SaO2: 94
Physical Exam
-
General: Awake
Cardiovascular: Regular rate & rhythm
Respiratory: Clear
Sternum: Stable
Incision: Clean
Extremities: No Edema
[2024-01-20 02:57] VITALS: BP 116/58
--- NOTE | 2024-01-20 03:00 | PTCARENOTE ---
no changes in assessment, pt VSS. NSR 70's. POX 94% on room air. AM labs drawn and sent. pt resting between care.
[2024-01-20 03:15] LABS: Mean Corp Hgb Conc. 33.3 g/dL (33.0-37.0); Mean Corpuscular Hgb 27.8 pg (27.0-31.0); Mean Corpuscular Volume 83.3 fL (80.0-94.0); Mean Platelet Volume 10.2 fL (7.4-10.4); Platelet Count 371 10^3/uL (130-400); Red Blood Cell Count 2.88 10^6/uL (4.70-6.10); Red Cell Dist. Width 15.9 % (11.5-14.5); White Blood Cell Count 10.4 10^3/uL (4.8-10.8)
[2024-01-20 03:29] LABS: Blood Urea Nitrogen 35 mg/dl (9-20); Calcium 8.1 mg/dl (8.4-10.2); Carbon Dioxide 23 mmol/L (22-30); Chloride 103 mmol/L (98-107); Estimated Creatinine Clearance 29 ml/min; Glucose 79 mg/dl (70-99); Potassium 3.6 mmol/L (3.5-5.1); Sodium 136 mmol/L (135-145); eGFR 34.79
[2024-01-20 04:44] VITALS: BMI 29.5
[2024-01-20 07:16] LABS: Glucose - Point of Care 112 mg/dl (70-99)
[2024-01-20 07:27] VITALS: BP 113/50
[2024-01-20] MEDS: KCL 20 MEQ PO (07:27)
[2024-01-20] MEDS: NORVASC 10 MG PO (07:27)
[2024-01-20] MEDS: LOW STRENGTH ASPIRIN 81 MG PO (07:27)
[2024-01-20] MEDS: PROTONIX 40 MG PO (07:28)
[2024-01-20] MEDS: LOZOL 1.25 MG PO (07:28)
[2024-01-20] MEDS: VITAMIN C 1000 MG PO (07:28)
[2024-01-20] MEDS: PACERONE 200 MG PO (07:28)
[2024-01-20] MEDS: LOPRESSOR 25 MG PO (07:28)
[2024-01-20] MEDS: NOVOLOG FLEXPEN-LOW RESISTANCE SC ×2 (07:29→11:36)
[2024-01-20] MEDS: LANTUS 0.179999999999999993 UNITS SC (07:29)
[2024-01-20] MEDS: NOVOLOG FLEXPEN 10 UNITS SC ×2 (07:29→11:39)
[2024-01-20] MEDS: PLAVIX 75 MG PO (07:29)
[2024-01-20] MEDS: CRESTOR 20 MG PO (07:29)
[2024-01-20] MEDS: SENOKOT-S PO (07:30)
--- NOTE | 2024-01-20 07:45 | PTCARENOTE ---
Received pt from nightshift RN; pt AAOx3 and resting comfortably in chair; NSR on monitor and VSS; PIV x1 patent; Lungs diminished; positive bowel sounds; pt voiding clear yellow urine; palpable pulses throughout; no edema noted; all surgical sites
C/D/I; see nursing documentation for further details.
--- NOTE | 2024-01-20 08:28 | W.DCSUMMARY ---
Discharge Summary
Discharge Data
Date of Admission: 01/15/24
Date of Discharge: 01/20/24
Total time spent discharging patient (in min): 35
-
Pending Results: No
Hospital Course
Primary care physician:
Dr. Lee Chowdhury
Outpatient rope tow operator:
Dr. Virgil Weston
Inpatient consultants:
CBC, PM&R, sas programmer
Procedures:
1. Robotic assisted MIDCAB (single-vessel bypass left internal mammary artery in situ to left anterior descending artery)
Primary Diagnosis:
1. Coronary Artery Disease with proximal LAD involvement and status post stenting for multivessel disease
Secondary Diagnoses:
1. 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
2. Hypertension
3. Diabetes mellitus, type II
4. Hyperlipidemia
5. Chronic kidney disease
6. Peripheral artery disease
7. Crohn's disease
8. Mild aortic insufficiency
HPI: 83-year-old male with known CAD who underwent recent PCI and stenting of the RCA and ramus/circumflex lesion was found to have a long segment calcification of the proximal to mid LAD approximately 80% that was not amenable to stenting.�
Following his PCI, he felt significantly better and is no longer having exertional angina. The STS risk was discussed with the patient in the office and the shared decision making was to pursue a single-vessel bypass using his mammary artery to his
LAD via a mini invasive approach.
Hospital course: Patient presented to [facility] on 01/14 for an elective MIDCAB with Dr. Serra. He returned to the CVICU on Levophed, Precedex, and insulin infusions. Postoperative ABG showed patient was acidotic and received 2 A of bicarb
and respiratory rate was increased. He was given fluids. Patient's Precedex was weaned off and was extubated by 1445. He was started on postoperative aspirin once he was tolerating oral medications. On 01/15 postop day #1, patient's EKG showed
isolated ST elevations in V2, repeat EKG showed diffuse elevations, and echocardiogram was stable. Patient was having episodes of diarrhea therefore colchicine was not started. Patient was hypertensive and was started on amlodipine. On 3
postoperative day #2, diarrhea resolved. Patient was transitioned off insulin infusion and was started on Farxiga, Lantus dosing was increased and NovoLog dose was increased. He was diuresed with 40 mg of IV Lasix. On 3 postop day #3, patient's
chest tubes were removed along with his right IJ cordis and Tapia catheter. Due to his history of IBS patient's indapamide was restarted. Patient was found to be anemic and was started on iron and vitamin C. And patient was redosed with IV Lasix.
However patient's Farxiga was held due to the patient's rising creatinine. 2 view chest x-ray remained stable. On 01/18 postop day #4, creatinine was stable at 1.9 and no further diuresis was given. Patient was deemed stable for discharge to [facility].
Home medication changes:
See below
Discharge Plan
-
Patient Disposition: Acute Rehab Facility
Discharge Diagnosis/Procedures: CAD/CABG
Condition: Good
Diet: Diabetic, Carb Controlled
Activity: No strenuous activity
Driving Restrictions: Not until seen by your Dr
Bathing Restrictions: OK to Shower
Other Services: Cardiac Rehab
Specialty Instructions: Weigh Daily- Call MD for wt gain/loss 3 lbs overnight/5 lbs in 1 week
Activity Restrictions/Additional Instructions:
Please call to make appointments for Phase II Cardiac Rehab: (When PT/OT is no longer needed)
Abdelrahman Mcrae
[phone] [place]
[phone]
Referrals:
[facility] [Other]
Cydney Red MD [Non-Admitting Privileges] - 02/17/24 10:00 am
Lee Chowdhury MD [Family Provider] -
Dav Serra MD [Active] - 02/13/24 1:00 pm
Prescriptions:
New
acetaminophen 325 mg Tablet
650 mg PO Q6HPRN PRN (Reason: mild pain,headache,temp >101F ) Qty: 0 0RF
ascorbic acid (vitamin C) [Vitamin C] 500 mg Tablet
1,000 mg PO DAILY Qty: 30 0RF
pantoprazole 40 mg Tablet,Delayed Release (Dr/Ec)
40 mg PO DAILY Qty: 30 1RF
Insulin Glargine Lantus [Lantus] 18 UNITS
Subcutaneous Insulin Syringe [Syringe-Insulin] 0 UNIT
As Directed mls/hr SC BID@0730,2200
Reason for use: Diabetes
Ordered By: Teena Jiménez CRNP
Last Taken: 01/20/24 07:29 0.18 mls
metoprolol tartrate 25 mg Tablet
25 mg PO Q12 Qty: 0 0RF
Continued
clopidogrel 75 mg Tablet
75 mg PO DAILY
aspirin 81 mg Tablet,Delayed Release (Dr/Ec)
81 mg PO DAILY
amlodipine 10 mg Tablet
10 mg PO DAILY
indapamide 1.25 mg Tablet
1.25 mg PO DAILY
fluticasone propionate 50 mcg/actuation [place],Suspension
1 spray INTRANASAL DAILY
fenofibrate nanocrystallized 145 mg Tablet
145 mg PO DAILY
mesalamine 1.2 gram Tablet,Delayed Release (Dr/Ec)
4.8 g PO DAILY
Rx Instructions:
w/ a meal
trazodone 100 mg Tablet
100 mg PO HS
insulin aspart U-100 [Novolog FlexPen U-100 Insulin] 100 unit/mL (3 mL) Insulin Pen
14 - 18 sliding scale dose SC DIRECTED
rosuvastatin 20 mg Tablet
20 mg PO DAILY
Discontinued
vancomycin 125 mg Capsule
125 mg PO DAILY
metoprolol succinate 25 mg Tablet Extended Release 24 Hr
25 mg PO DAILY
insulin glargine [Lantus Solostar U-100 Insulin] 100 unit/mL (3 mL) Insulin Pen
20 unit SC BID
telmisartan 80 mg Tablet
80 mg PO DAILY
Discharge Orders:
Discharge Patient (As Directed); Ordered 01/20/24
Ordered By: Hodan Amaro
Care Plan Goals
Care Plan Goals:
Problem: Readiness for enhanced knowledge related to diagnosis and treatment plan
Goal: Understand your diagnosis and treatment plan needs, including medications if applicable.
Instructions: Know your diagnosis, underlying causes and treatment plan options, including medications if applicable. Consult with your health care team to learn about your diagnosis and treatment plan, including medications if applicable.
--- NOTE | 2024-01-20 10:18 | W.PN.CD ---
Today's Communication / Plan
-
Seems ready for rehab
Impression / Plan
-
Background: 83M with CAD, HTN, HLD, CKD, PAD, DMII, and toe amputationd presents for robotic mid-CAB. Primary Icing Machine Operator: Dr. Cydney Red ([facility])
CAD S/P Robotic assisted MIDCAB (single-vessel bypass LÓPEZ in situ to LAD) by Dr. Serra 01/15/24
-Prior PCI with stenting to RCA & Ramus
-EF 60% pre and post - repeat ECHO 01/15 - LVEF 60% stable.
-Tele: sinus
-ASA, plavix, statin
Resolved pericardial findings
Resolved bradycardia
ADELINA, Baseline CKD3b
Mild AI
Type II DM, Hgba1c 9.4%
HTN
HLD, goal LD < 70, ideally < 55
PAD
Dispo: Rehab - possibly today
Subjective: Eager for discharge
Physical Exam
Vital Signs/Labs
Vital Signs
Temp Pulse Resp BP Pulse Ox
98.2 F 73 20 113/50 95
01/20/24 07:39 01/20/24 08:00 01/20/24 07:39 01/20/24 07:28 01/20/24 08:40
01/19/24 01/20/24 01/21/24
06:59 06:59 06:59
Actual Weight 87.9 kg
01/20/24 02:54
01/20/24 02:54
PT 18.1 Sec (11.4-14.6) H 01/15/24 12:29
INR 1.49 01/15/24 12:29
APTT 36.0 Sec (23.4-35.0) H 01/15/24 12:29
Magnesium 2.1 mg/dl (1.6-2.3) 01/16/24 03:23
Physical Exam
Constitutional: No acute distress
Cardiovascular: Rhythm & rate is regular and Pedal edema is absent
Respiratory: Respiratory effort normal and Lungs clear to auscul.
GI: Soft and Distention absent
Neuro/Psych: Alert
Data Reviewed
-
Date of Service: January 20, 2024
--- NOTE | 2024-01-20 10:31 | PN.DE.MGMTRT ---
Insulin Management
- -
01/20/2024: Diabetes Management F/U:
83 year old male admitted 01/14 for an elective MIDCAB with Dr. Serra. PMH: HCL, HTN, CAD, PVD, CKD3, Crohns disease and T2DM, A1C 9.4%.
Patient is POD 5 s/p robotic assisted MIDCAB. Doing well, A/Ox3, comfortably siting up in chair, offers no complaints.
He was transitioned to SQ insulin on 01/16, glucose has remained stable throughout the weekend. premeal range 101 to 125.
Cr 1.1 on admission-->1.9 yesterday-->1.9 today, Inder remains on hold.
Will make no changes to current regimen: Lantus 18 units BID, and NovoLog 10 units AC
Will follow glucose for need to increase. Plan for dispo to rehab today, pt may cont with current regimen at discharge
Diabetes History
- -
Type of Diabetes: 2 requiring insulin
Pre-Admission Diabetes Regimen
01/20/24
02:54
Creatinine 1.9 H
Lab Results
Hemoglobin A1c 9.4 % (4.0-5.6) H 01/06/24 12:01
Insulin Pump Settings
IP Diabetes Regimen
01/19/24 01/19/24 01/19/24
11:21 16:47 21:01
Glucose
POC Glucose 101 H 125 H 109 H
01/20/24 01/20/24
02:54 07:15
Glucose 79
POC Glucose 112 H
Meal type: Breakfast
Meal type: Dinner
Amount consumed: 100%
Amount consumed: 100%
Patient Education
--- NOTE | 2024-01-20 11:01 | CM ---
pt to go to [facility] today, bed avail.
[2024-01-20 11:10] LABS: Glucose - Point of Care 116 mg/dl (70-99)
[2024-01-20] MEDS: NSS IV (11:36)
[2024-01-20 12:01] VITALS: BP 110/43
--- NOTE | 2024-01-20 12:16 | PTCARENOTE ---
Assessment unchanged; NSR on monitor and VSS; awaiting bed at [facility].
== END 2024-01-20 16:19 | DRG 236 ==
LOC: CVICU 04:45
PROVIDERS: Nurse Practitioner; ADMITTING PHYSICIAN Thoracic Surgery (Cardiothoracic Vascular Surgery); CONSULT PHYSICIAN Internal Medicine; FAMILY PHYSICIAN Hospitalist
PROC: B24BZZ4 Ultrasonography of Heart with Aorta, Transesophageal (ICD-10-PCS; 2024-01-15)
PROC: 4A0335C Measurement of Arterial Flow, Coronary, Percutaneous Approach (ICD-10-PCS; 2024-01-15)
PROC: 8E0W4CZ Robotic Assisted Procedure of Trunk Region, Percutaneous Endoscopic Approach (ICD-10-PCS; 2024-01-15)
PROC: 02104Z9 Bypass Coronary Artery, One Artery from Left Internal Mammary, Percutaneous Endoscopic Approach (ICD-10-PCS; 2024-01-15)
DX: I25.10 Atherosclerotic heart disease of native coronary artery without angina pectoris (principal); K50.90 Crohn's disease, unspecified, without complications; D62 Acute posthemorrhagic anemia; E87.20 Acidosis, unspecified; J98.11 Atelectasis; E87.1 Hypo-osmolality and hyponatremia; I31.9 Disease of pericardium, unspecified; E86.1 Hypovolemia; N18.30 Chronic kidney disease, stage 3 unspecified; E11.22 Type 2 diabetes mellitus with diabetic chronic kidney disease; E11.51 Type 2 diabetes mellitus with diabetic peripheral angiopathy without gangrene; I13.10 Hypertensive heart and chronic kidney disease without heart failure, with stage 1 through stage 4 chronic kidney disease, or unspecified chronic kidney disease; J30.2 Other seasonal allergic rhinitis; K66.0 Peritoneal adhesions (postprocedural) (postinfection); E78.00 Pure hypercholesterolemia, unspecified; H91.90 Unspecified hearing loss, unspecified ear; Z95.5 Presence of coronary angioplasty implant and graft; Z79.82 Long term (current) use of aspirin; Z79.02 Long term (current) use of antithrombotics/antiplatelets; Z79.51 Long term (current) use of inhaled steroids; Z79.4 Long term (current) use of insulin
CPT/HCPCS: 93308; 36415; 71045; 71046; 71250; 74176; 80048; 80053; 81003; 81015; 82248; 82330; 82565; 82805; 82947; 82962; 83036; 83735; 84132; 84302; 84520; 85014; 85018; 85025; 85027; 85049; 85610; 85730; 86850; 86900; 86901; 86920; 87070; 93005; 93312; 93320; 93325; 93880; 94002; 97110; 97116; 97163; 97167; 97530; 97535; J2916

== ENCOUNTER 2024-02-05 10:02 | Outpatient (RCR) | payer MEDICARE, OTHER, SELFPAY | END 2024-02-05 23:59 | disposition home or self-care (01) | LOC: ROT 10:02 | PROVIDERS: ATTENDING PHYSICIAN Physical Medicine & Rehabilitation | DX: I25.700 Atherosclerosis of coronary artery bypass graft(s), unspecified, with unstable angina pectoris (principal); R54 Age-related physical debility; Z73.6 Limitation of activities due to disability | CPT/HCPCS: 97110; 97162; 97167; 97530 ==

== ENCOUNTER 2025-06-26 15:13 | Emergency (ER) | payer MEDICARE, OTHER, SELFPAY ==
[2025-06-26 15:36] VITALS: BP 117/57
[2025-06-26 18:38] VITALS: BP 162/84; BMI 28.2
--- NOTE | 2025-06-26 19:49 | ED.GENMED ---
History of Present Illness
General
Chief Complaint: Fall
Source: patient and family
Exam Limitations: none
Time Seen by Provider: 06/26/25 18:13
Nursing documentation reviewed up to this point in time: agreed with
History of Present Illness
History of Present Illness:
Note:
CHIEF COMPLAINT(S)
Right groin pain.
HISTORY OF PRESENT ILLNESS
The patient is an 84-year-old male with a history of right hip and knee discomfort who presents with concerns of potential hip injury following a fall. He reports that approximately one month ago, he experienced difficulty stepping up onto the
pavement outside a drug store despite using his cane. In an attempt to balance, he tilted her cane to the right and subsequently fell between the curb and her car. During the fall, an insulin pen in his pocket jabbed his right groin, resulting in
significant pain which has been persistent, though slightly improving recently. He denies any bruising in the area.
The patient reports falling again recently at home while trying to get out of his car in her driveway. He called his son for assistance to get up as he found it difficult while on the driveway. She uses a cane for ambulation and states that her
mobility returned to baseline after this recent fall with no acute worsening of hip or knee symptoms.
On physical examination, movement of the right hip through various maneuvers did not elicit significant pain except for when the groin was directly involved, suggesting possible minor musculoskeletal strain. He denies severe hip pain or significant
limitation in walking post-falls.
MEDICATIONS
The patient uses an insulin pen.
PHYSICAL EXAM
General: Alert, no acute distress.
Skin: Warm, dry.
Head: Normocephalic, atraumatic.
Neck: Supple, trachea midline.
Eye, Ears, Nose, Mouth, and Throat: Oral mucosa moist.
Cardiovascular: Normal peripheral perfusion, No edema.
Respiratory: Respirations are non-labored.
Gastrointestinal: Abdomen nondistended.
Back: Normal range of motion, Normal alignment.
Musculoskeletal: Normal range of motion, normal strength. Manipulation of the right hip is predominantly unremarkable except for mild discomfort in the groin area.
Neurological: Alert and oriented to person, place, time, and situation, No focal neurological deficit observed.
Psychiatric: Cooperative, appropriate mood and affect.
PROBLEM LIST
Acute Problems:
- Pain in the right groin following falls.
- Recent falls with associated mobility issues.
PLAN
The plan is to conduct a thorough review of recent hip imaging to definitively rule out any fractures. Given the mild symptoms and improving status, continue monitoring symptoms and manage with supportive care. If pain persists or worsens, consider
follow-up imaging or referral to a specialist.
DIFFERENTIAL DIAGNOSIS
The Differential Diagnosis includes, in no particular order and is not limited to:
1. Hip contusion
2. Musculoskeletal strain
3. Hip fracture
4. Iliopsoas bursitis
5. Sacroiliac joint dysfunction
6. Osteoarthritis exacerbation
7. Trochanteric bursitis
8. Femoral nerve entrapment
9. Lumbar radiculopathy
10. Gluteal muscle injury
Disposition:
SUMMARY OF ENCOUNTER
The patient is an 84-year-old male presenting with mild right hip pain following a fall today. He did not strike hishead during the fall and reports no significant complaints at this time. He is able to ambulate without issue. The patient was
evaluated, and given hiss table condition and mild symptoms, it was determined to manage his care on an outpatient basis
DISPOSITION
Discharge.
PLAN
The patient will be discharged with instructions to follow up with an a r specialist for further evaluation and management of her right hip discomfort.
FOLLOW-UP INSTRUCTIONS
Please call the office immediately to schedule a follow-up visit with orthopedics.
MEDICAL DECISION MAKING
- Number and Complexity of Problems Addressed: Chronic conditions affecting care include a history of previous falls with sub-acute injuries.
DIAGNOSIS
1. Pain in right hip, unspecified (M25.551)
2. Personal history of falls (Z91.81)
Phy Exam
Physical Exam
Physical Exam:
.
Course
Orders/Labs/Results
Orders:
Orders
06/26/25 15:38
CR Hip - RT w/wo Pel 2-3 Vw* Urgent
Comment:
Reason For Exam: fall
Include a pelvis x-ray?: Yes
Knee, Right 4 or More Views [CR Knee- Right 4 Or More View*] Urgent
Comment:
Reason For Exam: fall
Vital Signs
Initial and Last Documented VS:
Initial Vital Signs
Temp Pulse Resp BP Pulse Ox
98.3 F 72 19 117/57 97
06/26/25 15:36 06/26/25 15:36 06/26/25 15:36 06/26/25 15:36 06/26/25 15:36
Last Documented Vital Signs
Temp Pulse Resp BP Pulse Ox
98.3 F 69 17 162/84 99
06/26/25 15:36 06/26/25 18:38 06/26/25 18:38 06/26/25 18:38 06/26/25 18:38
*Radiology
Radiology exam reviewed: radiology read reviewed
*Pulse Oximetry
SaO2: 99
Oxygen Mode of Delivery: Room air
Patient hypoxic: no
*Critical Care Note
Total Time (30-74mins, 75-104mins- exclusive of procedures): Not Applicable
Update Note
Update Note:
Patient was able to ambulate without issue
ED Attending Note
-
Portions of this chart may have been created with voice recognition software.� Occasional wrong word or��sound alike� substitutions may have occurred due to the inherent limitations of voice recognition software.
Discharge Plan
Departure
Patient Disposition: Home (Routine Discharge)
Date of Disposition: 06/26/25
Time of Disposition: 19:49
Patient with high blood pressure during this ER visit?: Yes
Discharge Problem:
Hip pain, right
Instructions: Preventing falls in adults, Hip Pain ED, BLOOD PRESSURE
Prescriptions:
No Action
aspirin 81 mg Tablet,Delayed Release (Dr/Ec)
81 mg PO DAILY
ascorbic acid (vitamin C) [Vitamin C] 500 mg Tablet
1,000 mg PO DAILY Qty: 30 0RF
insulin glargine
See Rx Instructions .ROUTE .COMPLEX
Rx Instructions:
18 units subcutaneously, SC , 07:30, 22:00
guaifenesin 600 mg Tablet Extended Release 12hr
600 mg PO Q12 30 Days Qty: 60 0RF
melatonin 5 mg Tablet
5 mg PO HS 30 Days Qty: 30 0RF
clopidogrel 75 mg Tablet
75 mg PO DAILY 30 Days Qty: 30 0RF
trazodone 100 mg Tablet
100 mg PO HS 30 Days Qty: 30 0RF
amlodipine 10 mg Tablet
10 mg PO DAILY 30 Days Qty: 30 0RF
pantoprazole 40 mg Tablet,Delayed Release (Dr/Ec)
40 mg PO DAILY 30 Days Qty: 30 1RF
indapamide 1.25 mg Tablet
1.25 mg PO DAILY 30 Days Qty: 30 0RF
fluticasone propionate 50 mcg/actuation [place],Suspension
1 spray INTRANASAL DAILY 30 Days Qty: 1 0RF
insulin aspart U-100 [Novolog FlexPen U-100 Insulin] 100 unit/mL (3 mL) Insulin Pen
9 sliding scale dose SC DIRECTED 30 Days Qty: 270 0RF
rosuvastatin 20 mg Tablet
20 mg PO DAILY 30 Days Qty: 30 0RF
fenofibrate nanocrystallized 145 mg Tablet
145 mg PO DAILY 30 Days Qty: 30 0RF
mesalamine 1.2 gram Tablet,Delayed Release (Dr/Ec)
4.8 g PO DAILY 30 Days Qty: 30 0RF
Rx Instructions:
w/ a meal
metoprolol tartrate 25 mg Tablet
25 mg PO Q12 30 Days Qty: 60 0RF
Referrals:
[facility] [Provider Group]
Lee Chowdhury MD [Family Provider]
Activity Restrictions/Additional Instructions:
Thank You for choosing [facility].
It was a pleasure meeting you and taking part in your care. We hope for your continued healing and wellness.
Please read discharge instructions in their entirety. However, they are for general education and may not describe your exact diagnosis at discharge. Information on your ER visit and medical conditions were discussed with you along with appropriate
follow up information...
If indicated, please take your medications as instructed and indicated on discharge paperwork.
Please schedule a follow up appointment as directed. Call to schedule an appointment
Please return to the emergency department with ANY change in, persisting, or worsening of symptoms. If any of your symptoms do not improve, or persist, or become more severe within 6-12 hours, please return to the emergency department for further
care.
Please return to the emergency department if you develop a headache, neck pain/stiffness, fever greater than 100.4F, chest pain, shortness of breath, persistent nausea, vomiting, slurred speech, difficulty walking, numbness/tingling, weakness, signs
of infection or any other symptoms that are worrisome to you.
If you have any questions or concerns please do not hesitate to call the Hospital at or E-mail me directly at [email or web address]
Interventions
Interventions:
*Risk Screen - Suicide Last Done: 06/26/25 15:36
*General Assessment Last Done: 06/26/25 15:36
*Neglect/Abuse Screening Last Done: 06/26/25 15:36
ED-Musculoskeletal Assessment Last Done: 06/26/25 18:40
ED- Neurological Assessment Last Done: 06/26/25 18:40
ED-Skin Assessment Last Done: 06/26/25 18:40
Discharge Date and Time
Print Language: FRENCH
== END 2025-06-26 20:03 | disposition home or self-care (01) ==
LOC: EMR 15:13
PROVIDERS: EMERGENCY PHYSICIAN Student in an Organized Health Care Education/Training Program; FAMILY PHYSICIAN Hospitalist
DX: M25.551 Pain in right hip (principal); M25.561 Pain in right knee; R10.31 Right lower quadrant pain; W19.XXXA Unspecified fall, initial encounter
CPT/HCPCS: 99283; 73502; 73564